=== PATIENT | female | born 1960 | race Two or more races ===

== ENCOUNTER 2020-08-27 13:53 | Inpatient (IN) | payer BC, MEDICAID ==
[~2020-08-27] VITALS: Ht 175.3 cm; Wt 49.9 kg
[2020-08-27 14:00] VITALS: BP 152/84
--- NOTE | 2020-08-27 14:00 | NUR ---
ED Nurse Note: Pt wheeled in to ED from home c/o right humerus pain and fracture. Pt was reffered by Dr. Wood for surgery. Pt had an imaging done last 08/24 and it shows midshaft humerus fracture that will require surgical repair. Pt has hx of multiple myeloma and thrombocytopenia. Pt presents with an immobilizer. AAox4, verbally responsive. No SOB, on room air. ERMD at bedside.
[2020-08-27] MEDS ORDERED: POTASSIUM CHLO20 ME1 ORAL (14:06)
[2020-08-27] MEDS ORDERED: ALLOPURINOL100 M1 ORAL (14:06)
[2020-08-27] MEDS ORDERED: AMLODIPINE BES2.5 MG ORAL (14:06)
[2020-08-27] MEDS ORDERED: DEXAMETHASONE6 MG PO (14:06)
[2020-08-27] MEDS ORDERED: ATIVAN0.5 MG ORAL (14:06)
[2020-08-27] MEDS ORDERED: ACYCLOVIR200 MG ORAL (14:06)
[2020-08-27] MEDS ORDERED: KEPPRA500 M4 ORAL (14:06)
[2020-08-27] MEDS ORDERED: POMALYST1 MG PO (14:06)
[2020-08-27] MEDS ORDERED: OXYCODONE HCL5 M2 ORAL (14:06)
--- NOTE | 2020-08-27 14:12 | Emergency Room Report ---
History of Present Illness General Chief Complaint: Pain Source: Patient, Family Member Present Illness HPI Disclaimer: Please note that this report is being documented using [employer] technology. This can lead to erroneous entry secondary to incorrect interpretation by the dictating instrument. HPI: 60-year-old female with history of seizure disorder multiple myeloma presents for evaluation of humerus fracture. The patient appears to have suffered a pathologic fracture of the right humerus on 08/24. She had imaging done on 08/24 after initial injury as well as today (08/27), showing a midshaft humerus fracture that will require surgical repair. She has a history of thrombocytopenia. Sent in by Dr. Charles Wood who will fix the fracture and to be admitted to Dr. Lagos. Denies other falls or injuries. Denies chest pain, palpitations, shortness of breath, cough, congestion. Only complaint is of arm pain. She was placed in an immobilizer at the orthopedics office prior to arrival. PMH: Multiple myeloma, brain tumor, thrombocytopenia PSH: Brain tumor resection Allergies: Reviewed Social Hx: Reviewed Allergies: Coded Allergies: No Known Allergies (Unverified , 08/27/20) COVID-19 Screening Contact w/high risk pt: No Experienced COVID-19 symptoms?: No COVID-19 Testing performed BLUNGER: Yes COVID-19 Screening: Negative COVID-19 COVID-19 Testing Source: few weeks ago Nursing Documentation-PMH Past Medical History: No History, Except For Hx Hypertension: Yes Hx Cancer: Yes - multiple myeloma Review of Systems All Other Systems: negative except mentioned in HPI Physical Exam Vital Signs Date Time Temp Pulse Resp B/P (MAP) Pulse Ox O2 Delivery O2 Flow Rate FiO2 08/27/20 13:58 98.4 112 20 152/84 (106) 95 Room Air General: Awake and alert, appears uncomfortable HEENT: NC/AT. EOMI. Cardiovascular: Tachycardic Resp: Normal work of breathing. No cough, wheezing or crackles appreciated Abdomen: Abdomen is soft, nondistended. Nontender Skin: Intact. No abrasions, laceration or rash over the exposed skin MSK: Normal tone and bulk. Moving all extremities. Placed in right upper extremity immobilizer with palpable deformity of the right humerus. Tender palpation. Able to flex and extend all digits. Neuro: Awake and alert. Mentating appropriately. Medical Decision Making Diagnostic Impression: Primary Impression: Fracture, humerus closed, shaft Additional Impression: Thrombocytopenia ER Course 60-year-old female with history of multiple myeloma presents for evaluation of apparent pathologic fracture right humerus. Obtain preop labs in preparation for surgical fixation. Discussed with Dr. Wood of orthopedic surgery who does not require any more imaging at this time. Will transfuse platelets as needed. Patient's primary does not have privileges at our center and asked the Dr Lagos admit on his behalf however Dr. Lagos has asked Dr. Garcia to admit and he will stay on his consult. Hemoglobin 9.7, platelets 22. Discussed with Dr. Lagos who did not recommend transfusion at this time as surgery would likely be tomorrow. Laboratory Tests Test 08/27/20 14:30 White Blood Count 5.7 K/UL (4.8-10.8) Red Blood Count 2.86 M/UL (4.20-5.40) L Hemoglobin 9.7 G/DL (12.0-16.0) L Hematocrit 27.8 % (37.0-47.0) L Mean Corpuscular Volume 97 FL (80-99) Mean Corpuscular Hemoglobin 34.1 PG (27.0-31.0) H Mean Corpuscular Hemoglobin Concent 35.0 G/DL (32.0-36.0) Red Cell Distribution Width 25.1 % (11.6-14.8) H Platelet Count 22 K/UL (150-450) L Mean Platelet Volume 12.9 FL (6.5-10.1) H Neutrophils (%) (Auto) 91.1 % (45.0-75.0) H Lymphocytes (%) (Auto) 5.5 % (20.0-45.0) L Monocytes (%) (Auto) 2.1 % (1.0-10.0) Eosinophils (%) (Auto) 1.0 % (0.0-3.0) Basophils (%) (Auto) 0.4 % (0.0-2.0) Prothrombin Time 11.1 SEC (9.30-11.50) Prothrombin Time INR 1.0 (0.9-1.1) Activated Partial Thromboplast Time 34 SEC (23-33) H Sodium Level 140 MMOL/L (136-145) Potassium Level 4.8 MMOL/L (3.5-5.1) Chloride Level 111 MMOL/L (98-107) H Carbon Dioxide Level 20 MMOL/L (21-32) L Anion Gap 9 mmol/L (5-15) Blood Urea Nitrogen 38 mg/dL (7-18) H Creatinine 1.3 MG/DL (0.55-1.30) Estimated Glomerular Filtration Rate 41.5 mL/min (>60) Glucose Level 133 MG/DL (74-106) H Calcium Level 7.8 MG/DL (8.5-10.1) L Total Bilirubin 2.9 MG/DL (0.2-1.0) H Direct Bilirubin 1.1 MG/DL (0.0-0.3) H Aspartate Amino Transferase (AST) 41 U/L (15-37) H Alanine Aminotransferase (ALT) 75 U/L (12-78) Alkaline Phosphatase 252 U/L (46-116) H Total Protein 7.3 G/DL (6.4-8.2) Albumin 2.3 G/DL (3.4-5.0) L Globulin 5.0 g/dL Albumin/Globulin Ratio 0.5 (1.0-2.7) L Microbiology Date/Time Source Procedure Growth Status 08/27/20 14:30 Nasopharynx SARS-CoV-2 RdRp Gene Assay - Final Complete EKG Diagnostic Results Troponin ordered: Yes When was troponin ordered?: Aug 27, 2020 EKG Time: 14:19 Rate: normal Rhythm: NSR ST Segments: no acute changes Other Impression Sinus rhythm, normal axis, normal intervals, no ST segment changes. Rhythm Strip Diag. Results Rhythm Strip Time: 14:19 EP Interpretation: yes Rate: 100 Rhythm: NSR, no PVC's, no ectopy Last Vital Signs Date Time Temp Pulse Resp B/P (MAP) Pulse Ox O2 Delivery O2 Flow Rate FiO2 08/27/20 13:58 98.4 112 20 152/84 (106) 95 Room Air Disposition: ADMITTED INPATIENT Condition: Stable Derrell Urrutia MD Aug 27, 2020 14:12
[2020-08-27] MEDS ORDERED: Morphine Sulfate 4mg/ml Inj (IV USE ONLY) IVP ONE ×2 (14:15→16:00)
--- NOTE | 2020-08-27 14:30 | NUR ---
ED Nurse Note: Pt has a leander-cath on left upper chest patent and intact. Blood and covid swab sent to lab.
--- NOTE | 2020-08-27 15:04 | NUR ---
EMERGENCY CONTACT: Addis (daughter): [phone]
[2020-08-27 15:16] LABS: CALCIUM 7.8 MG/DL (8.5-10.1); CREATININE 1.3 MG/DL (0.55-1.30); POTASSIUM 4.8 MMOL/L (3.5-5.1)
[2020-08-27 15:26] LABS: ALBUMIN 2.3 G/DL (3.4-5.0); ALBUMIN/GLOBULIN RATIO 0.5 (1.0-2.7); BILIRUBIN,TOTAL 2.9 MG/DL (0.2-1.0)
[2020-08-27 15:32] LABS: HEMATOCRIT 27.8 % (37.0-47.0); HEMOGLOBIN 9.7 G/DL (12.0-16.0); MEAN CORPUSCULAR VOLUME 97 FL (80-99); PLATELET COUNT 22 K/UL (150-450); RED BLOOD COUNT 2.86 M/UL (4.20-5.40); RED CELL DISTRIBUTION WIDTH 25.1 % (11.6-14.8); WHITE BLOOD COUNT 5.7 K/UL (4.8-10.8)
[2020-08-27 15:37] LABS: BASOPHILS % (AUTO) 0.4 % (0.0-2.0); BILIRUBIN,DIRECT 1.1 MG/DL (0.0-0.3); LYMPHOCYTES % (AUTO) 5.5 % (20.0-45.0); MONOCYTES % (AUTO) 2.1 % (1.0-10.0); NEUTROPHILS % (AUTO) 91.1 % (45.0-75.0)
[2020-08-27] MEDS ORDERED: Morphine Sulfate 4mg/ml Inj (IV USE ONLY) ONE (15:54)
[2020-08-27 16:32] VITALS: BP 145/78
[2020-08-27] MEDS ORDERED: HYDROmorphone 1mg/ml Carpuject IVP PRN ×2 (17:15→23:30)
[2020-08-27 18:46] VITALS: BP 148/76
--- NOTE | 2020-08-27 19:03 | NUR ---
HAND-OFF: Report given to Sahshi RODRIGUEZ.
--- NOTE | 2020-08-27 19:05 | NUR ---
ED Nurse Note: Recived report from Afia
--- NOTE | 2020-08-27 20:00 | NUR ---
REPORT GIVEN TO ROSALIND RODRIGUEZ PATIENT IS TO BE TRANSFERD TO ROOM 311-[address] [facility]
[2020-08-27 21:00] VITALS: BP 172/100
--- NOTE | 2020-08-27 21:00 | NUR ---
NURSING NOTE: Received pt at apprx 2100 as ER transfer. Pt states she has pain 9/10 in R arm. Will medicate according to eMAR. No outward s/s of distress noted. Breathing pattern is even and unlabored on RA. Head to toe assessment completed. IV COREY in place patent, flushes well. Multiple bruises scattered on upper and lower extremities noted. Outside of scattered bruising skin is intact. New orders processed. Pt oriented to room, provided call light for assistance. All due medications will be administered. Bed at lowest level. Call light within reach. Pt will continue to be monitored.
[2020-08-27] MEDS ORDERED: Zolpidem 5mg tab ORAL PRN (21:45)
[2020-08-27] MEDS ORDERED: Miralax 17gm pkt ORAL PRN (21:45)
[2020-08-27] MEDS ORDERED: D5 1/2NS 1,000 ML IV SCH (22:00)
--- NOTE | 2020-08-27 23:05 | History & Physical ---
History and Physical History & Physicial Donavon Garcia MD Aug 27, 2020 23:05
[2020-08-27] MEDS ORDERED: Hydromorphone 0.5mg/0.5ml inj IVP PRN (23:30)
[2020-08-28] VITALS (25 sets, daily range): BP systolic 106–189; BP diastolic 56–103
--- NOTE | 2020-08-28 01:00 | NUR ---
NURSES NOTE: Vin from lab called and informed me that the platelets were not available at the [facility] for mixing picker tender for [address] Garcia called, Message left. Lab is to call after 0700 to see if the platelets are available at that time. There is still no guarantee for the AM
--- NOTE | 2020-08-28 02:45 | History and Physical Report ---
DATE OF ADMISSION: 08/27/2020 CHIEF COMPLAINT: Right shoulder pain. HISTORY OF PRESENT ILLNESS: This is a 60-year-old [place]ian Nepali female with past medical history significant for brain tumor, prior history of seizure disorder, Hypertension, multiple myeloma, and thrombocytopenia, who presented to the hospital after and was noted to have a pathological fracture of the right humerus. The patient was suffering from the fracture of the right shoulder on August 24, 2020. Imaging confirmed the midshaft humerus fracture, requires surgical intervention. 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 Shortly after initial evaluation in the emergency department, the patient was admitted to the hospital with right shoulder pathological fracture requiring surgical intervention. PAST MEDICAL HISTORY/PAST SURGICAL HISTORY: As above. History of multiple myeloma, brain tumor, thrombocytopenia, history of seizure disorder, Hypertension status post brain tumor resection, status post left shoulder nailing for stabilization of the shoulder due to the impinging fracture, history of left chest wall PASport placement, breast reduction, and appendectomy. MEDICATIONS AT HOME: Please refer to medication reconciliation. ALLERGIES: No known drug allergies. SOCIAL HISTORY: Denies any smoking, alcohol, or drugs. She is disabled. FAMILY HISTORY: Noncontributory. REVIEW OF SYSTEMS: Mostly as above. Denies any dysuria, frequency, hematuria. Denies any hemoptysis or hematochezia. Denies any bright red blood per rectum. Denies any loss of consciousness. Complained about shoulder pain. PHYSICAL EXAMINATION: VITAL SIGNS: On admission, temperature 98.4, pulse of 112, respirations 20, and blood pressure 152/84. GENERAL: The patient is awake, responsive, and in no acute distress. HEAD AND NECK: Pupils are reactive to light. Extraocular movements intact. Neck was supple. No JVD. LUNGS: Good air entry. No wheezing or rales. Decreased air entry in the bases. HEART: S1, S2. Regular rhythm with a systolic ejection murmur in the left sternal border. Tachycardic. No rubs was noted. Chest wall has PAS port on the left side of the chest wall noted without any sign of infection. ABDOMEN: Soft, nondistended, and nontender. Positive bowel sounds. EXTREMITIES: No cyanosis or clubbing. A +2 edema of bilateral lower extremity. Left upper extremity immobilization was noted. Right upper extremity has immobilization noted. SKIN: Left upper extremity ecchymosis was noted throughout the left upper extremity. NEUROLOGIC: Cranial nerves II through XII grossly intact. The patient is moving all her extremities except the right upper extremity due to the immobilization. Tenderness over the right shoulder. LABORATORY DATA: On admission from the emergency department, repeat WBC of 5.6, hemoglobin 9.7, hematocrit of 27, platelets is 22,000. Sodium 140, potassium 4.8, chloride 111, bicarb 20, BUN 38, creatinine 1.3, GFR is of 4.5, glucose is 133. AST of 41, ALT of 75, and alkaline phosphatase of 252. PT of 11, INR 1.0, and PTT of 34. Fibrinogen is 430. Rapid COVID test is negative. ASSESSMENT: 1. Right shoulder pathological humerus fracture. 2. History of multiple myeloma. 3. Brain tumor status post resection. 4. Seizure disorder. 5. Thrombocytopenia. 6. Pedal edema. PLAN: 1. Admit the patient to medical floor. 2. We will follow up with Dr. Israel cornejo from Orthopedics and Dr. Lagos from Hematology/Oncology. 3. We will type and cross. Transfuse 2 units of packed platelets in the morning. 4. Duplex of the lower extremity. 5. Pain control. 6. NPO after midnight. DIET: Diet would be regular diet. ACTIVITY: Bed rest. DVT PROPHYLAXIS: SCD. CODE STATUS: Full Code. Donavon Garcia M.D. DR: LIAT JOB#: [id number] CC: SUSY
--- NOTE | 2020-08-28 04:08 | NUR ---
NURSES NOTE: Do not put on SCD before the venous duplex is completed. STAT order entered for 08/27 however duplex was not completed. F/U phone call made to vascular ext and radiology ext. No answer on either line. Will f/u once again at 0630.
[2020-08-28] MEDS: oxyCODONE 5mg IR tab ORAL PRN ×3 (04:47→13:22)
[2020-08-28] MEDS ORDERED: Hydrocortisone 100mg Inj IV ONE (06:00)
--- NOTE | 2020-08-28 08:31 | NUR ---
NURSES NOTE: Venous duplex and EKG Taken. In chart. Dr aware of results. New orders processed. New BP meds processed. 5mg Norvasc once given 917. Clonidine 0.1 mg Q4H PRN now available for SBP >160.
[2020-08-28] MEDS ORDERED: Heparin 5000 units/ml inj SUBQ SCH (09:00)
[2020-08-28] MEDS ORDERED: Acyclovir 200mg Cap ORAL SCH (09:00)
--- NOTE | 2020-08-28 09:19 | NUR ---
NURSE HAND-OFF: Important Events on Shift:[1 bag or platelets was available from [facility]. ETA 1100 AM. F/u on getting second bag with blood bank. Dr Garcia aware. Gave ok to start with first bag. LABS moved to 1300 until after infusion. New orders processed for high BP. Norvasc 5mg once given at 0918.] Patient Status: [Stable] Diet: [NPO] Pending Orders: [Platelets, Lab work, 2d echocardiogram] Pending Results/Labs:[none] Pending MD notification:[none] Latest Vital Signs: Temperature 98.0 , Pulse 101 , B/P 189 /103 , Respiratory Rate 20 , O2 SAT 92 , Room Air, O2 Flow Rate . Vital Sign Comment: [BP high, Hr elevated] Latest Andrew Fall Score: 45 Fall Risk: High Risk Safety Measures: Call light Within Reach, Bed Alarm , Side Rails Side Rails x2, Bed position Low and Locked. Fall Precautions: Yellow Socks Patient Fall Education Report given to [ALVINO RN/GINNA RN].
[2020-08-28] MEDS: Allopurinol 100mg Tab ORAL SCH (11:10)
[2020-08-28] MEDS ORDERED: HYDROmorphone 1mg/ml Carpuject IVP PRN (11:15)
[2020-08-28] MEDS ORDERED: Hydromorphone 0.5mg/0.5ml inj IVP PRN ×2 (11:15→20:00)
--- NOTE | 2020-08-28 11:23 | Consultation ---
History of Present Illness General Date patient seen: Aug 28, 2020 Chief Complaint: Pain Present Illness HPI 60-year-old female with past medical history significant for brain tumor, seizure disorder, multiple myeloma, and thrombocytopenia, who presented to ER an episode of fall. she was diagnosed to have a pathological fracture of the right humerus. She is admitted for surgical intervention. Allergies: Coded Allergies: No Known Allergies (Unverified , 08/27/20) Medication History Scheduled Acyclovir* (Acyclovir*), Unknown Dose ORAL TWICE A DAY, (Reported) Allopurinol* (Allopurinol*), Unknown Dose ORAL DAILY, (Reported) Amlodipine Besylate* (Amlodipine Besylate*), Unknown Dose ORAL DAILY, (Reported) Dexamethasone (Dexamethasone), 28 MG PO 1xw, (Reported) Levetiracetam (Keppra), Unknown Dose ORAL EVERY 12 HOURS, (Reported) Lorazepam* (Ativan*), 0.5 MG ORAL PRN, (Reported) Pomalidomide (Pomalyst), Unknown Dose PO DAILY, (Reported) Potassium Chloride* (K-Dur*), Unknown Dose ORAL TWICE A DAY, (Reported) Scheduled PRN Oxycodone Hcl* (Oxycodone Hcl*), 5 MG ORAL Q4H PRN for For Pain, (Reported) Patient History Healthcare decision maker Resuscitation status Advanced Directive on File Past Medical/Surgical History Past Medical/Surgical History: (1) Multiple myeloma (2) Brain tumor Review of Systems All Other Systems: negative except mentioned in HPI Physical Exam General Appearance: cachetic, thin Lines, tubes and drains: peripheral HEENT: normocephalic, atraumatic Neck: non-tender, normal alignment Respiratory/Chest: chest wall non-tender, lungs clear Breasts: no masses Cardiovascular/Chest: normal peripheral pulses, normal rate Abdomen: normal bowel sounds, non tender Genitourinary/Rectal: normal genital exam Extremities: normal range of motion Last 24 Hour Vital Signs Date Time Temp Pulse Resp B/P (MAP) Pulse Ox O2 Delivery O2 Flow Rate FiO2 08/28/20 09:16 101 189/103 08/28/20 08:00 98.0 101 20 189/103 (131) 92 101 08/28/20 06:32 110 180/100 08/28/20 04:00 98.1 110 17 180/100 (126) 96 110 08/28/20 00:06 Room Air 08/28/20 00:00 98.7 106 18 156/92 (113) 97 106 08/27/20 21:00 98.6 107 18 172/100 (124) 96 107 08/27/20 19:56 98.2 78 18 140/80 98 Room Air 08/27/20 18:46 98.4 100 15 148/76 98 Room Air 08/27/20 16:32 98.4 105 19 145/78 96 Room Air 08/27/20 16:27 98.4 08/27/20 15:14 98.4 08/27/20 14:00 98.4 112 20 152/84 95 Room Air 08/27/20 13:58 98.4 112 20 152/84 (106) 95 Room Air Intake and Output 08/27/20 08/28/20 19:00 07:00 Intake Total 300 ml Balance 300 ml Intake Oral 300 ml # Voids 2 Laboratory Tests Test 08/27/20 14:30 White Blood Count 5.7 K/UL (4.8-10.8) Red Blood Count 2.86 M/UL (4.20-5.40) L Hemoglobin 9.7 G/DL (12.0-16.0) L Hematocrit 27.8 % (37.0-47.0) L Mean Corpuscular Volume 97 FL (80-99) Mean Corpuscular Hemoglobin 34.1 PG (27.0-31.0) H Mean Corpuscular Hemoglobin Concent 35.0 G/DL (32.0-36.0) Red Cell Distribution Width 25.1 % (11.6-14.8) H Platelet Count 22 K/UL (150-450) L Mean Platelet Volume 12.9 FL (6.5-10.1) H Neutrophils (%) (Auto) 91.1 % (45.0-75.0) H Lymphocytes (%) (Auto) 5.5 % (20.0-45.0) L Monocytes (%) (Auto) 2.1 % (1.0-10.0) Eosinophils (%) (Auto) 1.0 % (0.0-3.0) Basophils (%) (Auto) 0.4 % (0.0-2.0) Prothrombin Time 11.1 SEC (9.30-11.50) Prothromb Time International Ratio 1.0 (0.9-1.1) Activated Partial Thromboplast Time 34 SEC (23-33) H Fibrinogen 430 mg/dL (200-400) H Sodium Level 140 MMOL/L (136-145) Potassium Level 4.8 MMOL/L (3.5-5.1) Chloride Level 111 MMOL/L (98-107) H Carbon Dioxide Level 20 MMOL/L (21-32) L Anion Gap 9 mmol/L (5-15) Blood Urea Nitrogen 38 mg/dL (7-18) H Creatinine 1.3 MG/DL (0.55-1.30) Estimat Glomerular Filtration Rate 41.5 mL/min (>60) Glucose Level 133 MG/DL (74-106) H Calcium Level 7.8 MG/DL (8.5-10.1) L Total Bilirubin 2.9 MG/DL (0.2-1.0) H Direct Bilirubin 1.1 MG/DL (0.0-0.3) H Aspartate Amino Transf (AST/SGOT) 41 U/L (15-37) H Alanine Aminotransferase (ALT/SGPT) 75 U/L (12-78) Alkaline Phosphatase 252 U/L (46-116) H Total Protein 7.3 G/DL (6.4-8.2) Albumin 2.3 G/DL (3.4-5.0) L Globulin 5.0 g/dL Albumin/Globulin Ratio 0.5 (1.0-2.7) L Microbiology Date/Time Source Procedure Growth Status 08/27/20 14:30 Nasopharynx SARS-CoV-2 RdRp Gene Assay - Final Complete Height (Feet): 5 Height (Inches): 9.00 Weight (Pounds): 110 Medications Current Medications Medications (Trade) Dose Ordered Sig/Nasir Route PRN Reason Start Time Stop Time Status Last Admin Dose Admin Acetaminophen (Tylenol) 650 mg Q4H PRN ORAL Temp >100.5 08/27/20 21:45 09/26/20 21:44 Acetaminophen (Tylenol) 650 mg Q6H PRN ORAL Mild Pain (Pain Scale 1-3) 08/27/20 23:30 09/26/20 23:29 Acyclovir (Zovirax) 200 mg Q12HR ORAL 08/28/20 21:00 09/27/20 08:59 Allopurinol (Zyloprim) 100 mg DAILY ORAL 08/28/20 09:00 09/27/20 08:59 08/28/20 11:10 Amlodipine Besylate (Norvasc) 10 mg DAILY ORAL 08/29/20 09:00 09/28/20 08:59 Clonidine HCl (Catapres Tab) 0.1 mg Q4H PRN ORAL For High Blood Pressure 08/28/20 08:45 11/26/20 08:44 Dextrose (Dextrose 50%) 25 ml Q30M PRN IV Hypoglycemia 08/27/20 21:45 11/25/20 21:44 Dextrose (Dextrose 50%) 50 ml Q30M PRN IV Hypoglycemia 08/27/20 21:45 11/25/20 21:44 Dextrose/Sodium Chloride 1,000 ml @ 50 mls/hr Q20H IV 08/27/20 22:00 09/26/20 21:59 08/27/20 22:00 Hydromorphone HCl (Dilaudid) 0.5 mg Q3H PRN IVP Pain Scale (6-10) 08/28/20 11:15 09/04/20 11:14 Hydromorphone HCl (Dilaudid) 1 mg Q3H PRN IVP Severe Pain (Pain Scale 7-10) 08/28/20 11:15 09/04/20 11:14 08/28/20 11:17 Levetiracetam (Keppra) 500 mg Q12HR ORAL 08/28/20 09:00 09/27/20 08:59 08/28/20 11:11 Ondansetron HCl (Zofran) 4 mg Q6H PRN IVP Nausea & Vomiting 08/27/20 21:45 09/26/20 21:44 Oxycodone HCl (Roxicodone) 5 mg Q4H PRN ORAL For Pain 08/27/20 21:45 09/03/20 21:44 08/28/20 09:11 Polyethylene Glycol (Miralax) 17 gm HSPRN PRN ORAL Constipation 08/27/20 21:45 09/26/20 21:44 Potassium Chloride (K-Dur) 20 meq BID ORAL 08/28/20 09:00 3/29/21 08:59 08/28/20 11:11 Zolpidem Tartrate (Ambien) 5 mg HSPRN PRN ORAL Insomnia 08/27/20 21:45 09/03/20 21:44 08/28/20 02:12 Assessment/Plan Problem List: (1) Fracture, humerus closed, shaft ICD Codes: S42.309A - Unspecified fracture of shaft of humerus, unspecified arm, initial encounter for closed fracture SNOMED: 63298703 (2) Multiple myeloma ICD Codes: C90.00 - Multiple myeloma not having achieved remission SNOMED: 336375617 (3) Brain tumor ICD Codes: D49.6 - Neoplasm of unspecified behavior of brain SNOMED: 865957375 (4) Thrombocytopenia ICD Codes: D69.6 - Thrombocytopenia, unspecified SNOMED: 274832160 Assessment/Plan: pain management ortho consult watch PLT might need plt transfusion Dr. Lagos will follow the patient in hospital dvt prophylaxis with SCD symptomatic treatment Bang Rodriguez MD Aug 28, 2020 11:23
--- NOTE | 2020-08-28 11:24 | NUR ---
RD ASSESSMENT & RECOMMENDATIONS SEE CARE ACTIVITY FOR COMPLETE ASSESSMENT DAILY ESTIMATED NEEDS: Needs based on cancer 51.6kg 25-35 kcals/kg 0467-0838 total kcals 1-2 g protein/kg 52-103 g total protein 25-30 mL/kg 9823-7268 total fluid mLs NUTRITION DIAGNOSIS: Altered nutrition related lab values r/t clinical status as evidenced by elev BUN (38), elev BG(133), low Hgb(9.7), high BP(189/103). CURRENT DIET: Now NPO PO DIET RECOMMENDATIONS: LOW NA DIET ADDITIONAL RECOMMENDATIONS: 1) Ensure Enlive qdaily w/ diet Snacks in b/w meals 2) Obtain a standing weight as able 3) monitor BG, need for niss
--- NOTE | 2020-08-28 12:26 | Cardiac Electrophysiology PN ---
Subjective Subjective Patient seen and exmined and DW daughter and RN Add Lopressor for accelerated HTN and tachycardia. ECho Nl EF and ECG no acute changes. No prior [place] or CHF Cleared at moderate risk to proceed with arm surgery Platelet however is only 22 and will be addressed by hematology Dictated [id number] Objective Last 24 Hour Vital Signs Date Time Temp Pulse Resp B/P (MAP) Pulse Ox O2 Delivery O2 Flow Rate FiO2 08/28/20 09:16 101 189/103 08/28/20 08:00 98.0 101 20 189/103 (131) 92 101 08/28/20 06:32 110 180/100 08/28/20 04:00 98.1 110 17 180/100 (126) 96 110 08/28/20 00:06 Room Air 08/28/20 00:00 98.7 106 18 156/92 (113) 97 106 08/27/20 21:00 98.6 107 18 172/100 (124) 96 107 08/27/20 19:56 98.2 78 18 140/80 98 Room Air 08/27/20 18:46 98.4 100 15 148/76 98 Room Air 08/27/20 16:32 98.4 105 19 145/78 96 Room Air 08/27/20 16:27 98.4 08/27/20 15:14 98.4 08/27/20 14:00 98.4 112 20 152/84 95 Room Air 08/27/20 13:58 98.4 112 20 152/84 (106) 95 Room Air Intake and Output 08/27/20 08/28/20 19:00 07:00 Intake Total 300 ml Balance 300 ml Intake Oral 300 ml # Voids 2 Laboratory Tests Test 08/27/20 14:30 White Blood Count 5.7 K/UL (4.8-10.8) Red Blood Count 2.86 M/UL (4.20-5.40) L Hemoglobin 9.7 G/DL (12.0-16.0) L Hematocrit 27.8 % (37.0-47.0) L Mean Corpuscular Volume 97 FL (80-99) Mean Corpuscular Hemoglobin 34.1 PG (27.0-31.0) H Mean Corpuscular Hemoglobin Concent 35.0 G/DL (32.0-36.0) Red Cell Distribution Width 25.1 % (11.6-14.8) H Platelet Count 22 K/UL (150-450) L Mean Platelet Volume 12.9 FL (6.5-10.1) H Neutrophils (%) (Auto) 91.1 % (45.0-75.0) H Lymphocytes (%) (Auto) 5.5 % (20.0-45.0) L Monocytes (%) (Auto) 2.1 % (1.0-10.0) Eosinophils (%) (Auto) 1.0 % (0.0-3.0) Basophils (%) (Auto) 0.4 % (0.0-2.0) Prothrombin Time 11.1 SEC (9.30-11.50) Prothromb Time International Ratio 1.0 (0.9-1.1) Activated Partial Thromboplast Time 34 SEC (23-33) H Fibrinogen 430 mg/dL (200-400) H Sodium Level 140 MMOL/L (136-145) Potassium Level 4.8 MMOL/L (3.5-5.1) Chloride Level 111 MMOL/L (98-107) H Carbon Dioxide Level 20 MMOL/L (21-32) L Anion Gap 9 mmol/L (5-15) Blood Urea Nitrogen 38 mg/dL (7-18) H Creatinine 1.3 MG/DL (0.55-1.30) Estimat Glomerular Filtration Rate 41.5 mL/min (>60) Glucose Level 133 MG/DL (74-106) H Calcium Level 7.8 MG/DL (8.5-10.1) L Total Bilirubin 2.9 MG/DL (0.2-1.0) H Direct Bilirubin 1.1 MG/DL (0.0-0.3) H Aspartate Amino Transf (AST/SGOT) 41 U/L (15-37) H Alanine Aminotransferase (ALT/SGPT) 75 U/L (12-78) Alkaline Phosphatase 252 U/L (46-116) H Total Protein 7.3 G/DL (6.4-8.2) Albumin 2.3 G/DL (3.4-5.0) L Globulin 5.0 g/dL Albumin/Globulin Ratio 0.5 (1.0-2.7) L Microbiology Date/Time Source Procedure Growth Status 08/27/20 14:30 Nasopharynx SARS-CoV-2 RdRp Gene Assay - Final Complete Jerson Hernandes MD Aug 28, 2020 12:26
[2020-08-28 12:35] LABS: HEMATOCRIT 29.3 % (37.0-47.0); HEMOGLOBIN 9.9 G/DL (12.0-16.0); MEAN CORPUSCULAR VOLUME 99 FL (80-99); PLATELET COUNT 24 K/UL (150-450); RED BLOOD COUNT 2.95 M/UL (4.20-5.40); RED CELL DISTRIBUTION WIDTH 22.6 % (11.6-14.8); WHITE BLOOD COUNT 3.9 K/UL (4.8-10.8)
[2020-08-28 13:05] LABS: ALBUMIN 2.1 G/DL (3.4-5.0); ALBUMIN/GLOBULIN RATIO 0.4 (1.0-2.7); BILIRUBIN,TOTAL 2.5 MG/DL (0.2-1.0); CALCIUM 7.8 MG/DL (8.5-10.1); PHOSPHORUS 4.3 MG/DL (2.5-4.9)
[2020-08-28 13:07] LABS: BILIRUBIN,DIRECT 0.9 MG/DL (0.0-0.3)
--- NOTE | 2020-08-28 13:44 | Consultation ---
DATE OF CONSULTATION: 08/28/2020 CARDIOLOGY CONSULTATION CONSULTING PHYSICIAN: Jerson Hernandes MD. REFERRING PHYSICIAN: Donavon Garcia MD. REASON FOR CONSULTATION: Management of hypertension and preoperative clearance prior to right humerus surgery. 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 The patient also has history of seizure disorder, multiple myeloma and thrombocytopenia, and is getting chemotherapy/hydration via left chest port. The patient presented to the emergency room after a fall and was diagnosed with a pathological fracture of right humerus. The patient was admitted and Cardiology clearance was requested for preoperative clearance. In the emergency room, the patient's blood pressure was as high as 189/103. REVIEW OF SYSTEMS: Negative other than what was mentioned in history of present illness. PAST MEDICAL HISTORY: As mentioned above. FAMILY HISTORY: Noncontributory. SOCIAL HISTORY: She lives at home, does not smoke or drink alcohol, and has supportive family. MEDICATIONS: Per reconciliation. PHYSICAL EXAMINATION: VITAL SIGNS: Showed blood pressure 189/103, pulse is 101, respirations 18, and she is afebrile. HEAD AND NECK: Showed no JVD. LUNGS: Clear. CARDIOVASCULAR: Shows regular S1 and S2 with no gallop or murmur. ABDOMEN: Soft. EXTREMITIES: Right arm is in . LABORATORY AND DIAGNOSTIC STUDIES: Labs show white count of 5.7, hemoglobin 9.7, hematocrit 27, platelet count of only 22,000. Sodium 140, potassium 4.8, BUN of 38, creatinine 1.3, and glucose of 133. ASSESSMENT AND PLAN: 1. Accelerated hypertension. The patient is already on Norvasc 10 mg daily. I will add metoprolol 25 mg b.i.d. to her medical regimen, especially in the preop status. In the meantime, continue the patient on p.r.n. clonidine. It is of note that her echocardiogram showed ejection fraction of 60% and EKG showed sinus rhythm with nonspecific ST-T wave abnormalities. 2. Pathologic right arm fracture. The patient is cleared from cardiac perspective in view of nonischemic EKG and normal echocardiogram and no prior myocardial infarction or congestive heart failure. No further cardiac intervention is needed prior to surgery even though the patient has severe thrombocytopenia that needs to be addressed. 3. Multiple myeloma. 4. History of brain tumor, status post surgery. 5. Thrombocytopenia. Platelet count of only 22. Further evaluation by Dr. Lagos. Thank you very much for allowing me to participate in the care of this patient. Please do not hesitate to contact me for any questions regarding my evaluation. Jerson Hernandes M.D. DR: JONATAN JOB#: [id number] CC:
[2020-08-28] MEDS ORDERED: OXYCONTIN20 MG ORAL (13:49)
[2020-08-28] MEDS ORDERED: CLARITHROMYCIN500 MG PO (13:49)
[2020-08-28] MEDS ORDERED: ACYCLOVIR400 MG ORAL (13:49)
[2020-08-28] MEDS ORDERED: ZOLPIDEM TARTRAT5 MG ORAL (13:49)
[2020-08-28] MEDS ORDERED: SODIUM BICARBO650 MG PO (13:49)
[2020-08-28] MEDS ORDERED: ALLOPURINOL300 M1 ORAL (13:49)
[2020-08-28] MEDS ORDERED: AMLODIPINE BESYL5 MG ORAL (13:49)
[2020-08-28] MEDS ORDERED: VITAMIN D250 MCG PO (13:49)
[2020-08-28] MEDS ORDERED: POMALYST3 MG PO (13:49)
[2020-08-28] MEDS ORDERED: Bupivacaine 0.25% Inj 30ml INJ ONE (13:58)
[2020-08-28] MEDS ORDERED: NeoSporin Gu Irrig 1ml Amp IRRIG ONE (13:59)
[2020-08-28] MEDS ORDERED: Bacitracin 50000 Units Vial ONE (13:59)
--- NOTE | 2020-08-28 14:01 | NUR ---
CASE MANAGEMENT:INITIAL REVIEW 60 YR OLD FEMALE PRESENTED TO ED ADVISED BY CC;PAIN SI;RT HUMERUS PATHOLOGICAL FRACTURE. THROMBOCYTOPENIA. 98.4 112 20 152/84 95% ON RA H/H 9.7/27.8 PLT 22 BUN 38 CA 7.8 T-BILI 2.9 D-BILI 1.1 AST 41 ALP 252 ALB 2.3 APTT 34 FIBRINOGEN 430 COVID RAPID ~ NEGATIVE VENOUS DUPLEX ~ No evidence of deep venous thrombosis involving the lower extremities. IS;MORPHINE SULFATE IV X2 ADMITTED TO MED SURG MED SURG STATUS DCP;FROM HOME
[2020-08-28] MEDS ORDERED: Midazolam 2mg/2ml Inj ONE (14:45)
[2020-08-28] MEDS ORDERED: fentaNYL 100 mcg/2 mL IV ONE (14:45)
[2020-08-28] MEDS ORDERED: Lidocaine 1% MPF 10mg/ml 5ml ONE ×2 (14:50→18:11)
[2020-08-28] MEDS ORDERED: Ropivacaine 5mg/ml Vial 30ml INJ ONE (14:59)
[2020-08-28] MEDS ORDERED: Rocuronium Bromide 50mg/5ml Inj IV ONE (15:03)
[2020-08-28] MEDS ORDERED: Phenylephrine 10mg/ml Vial ONE (15:05)
--- NOTE | 2020-08-28 15:44 | Operative Note - PDOC ---
Operative Note Operative Note Pre-op Diagnosis: left patholigic humerus shaft fracture Procedure: see op report Post-op Diagnosis: same as pre-op plus Operative Findings: consistent w/pre-op dx studies Anesthesia: regional Specimen: none Complications: none Condition: stable Estimated Blood Loss: none Implant(s) used?: Yes Luis Wood MD Aug 28, 2020 15:44
--- NOTE | 2020-08-28 15:44 | Pre-Procedure Note/Attestation ---
Pre-Procedure Note/Attestation Complete Prior to Procedure Planned Procedure: right Procedure Narrative: humerus orif Indications for Procedure Pre-Operative Diagnosis: left patholigic humerus shaft fracture Attestation I attest that I discussed the nature of the procedure; its benefits; risks and complications; and alternatives (and the risks and benefits of such alternatives), prior to the procedure, with the patient (or the patient's legal guest services representative). I attest that, if there was a reasonable possibility of needing a blood transfusion, the patient (or the patient's legal guest services representative) was given the [facility] standardized written summary, pursuant to the [place] Blood Safety Act ([place] Health and Safety Code # 1645, as amended). I attest that I re-evaluated the patient just prior to the surgery and that there has been no change in the patient's H&P, except as documented below: Luis Wood MD Aug 28, 2020 15:44
[2020-08-28] MEDS ORDERED: Hydromorphone 0.5mg/0.5ml inj SUBQ PRN (15:45)
[2020-08-28] MEDS: D5 1/2NS 1,000 ML IV SCH (15:51)
[2020-08-28] MEDS ORDERED: Glycopyrrolate 0.2mg/ml 1ml Vial ONE (16:34)
--- NOTE | 2020-08-28 17:11 | Anethesia Preoperative Eval ---
Anesthesia Pre-op PMH/ROS General Date of Evaluation: Aug 28, 2020 Time of Evaluation: 15:20 Anesthesiologist: Lupe ASA Score: ASA 3 Mallampati Score Class I : Soft palate, uvula, fauces, pillars visible Class II: Soft palate, uvula, fauces visible Class III: Soft palate, base of uvula visible Class IV: Only hard plate visible Mallampati Classification: Class II Surgeon: Israel Diagnosis: R humerus Fx Surgical Procedure: ORIF of R humerus Fx Anesthesia History: none Family History: no anesthesia problems Allergies: Coded Allergies: No Known Allergies (Unverified , 08/27/20) Medications: see eMAR Patient NPO?: Yes Past Medical History Cardiovascular: Reports: HTN; Denies: CAD, [place], valve dz, arrhythmia, other Pulmonary: Denies: asthma, COPD, [place], other Gastrointestinal/Genitourinary: Reports: GERD; Denies: CRI, ESRD, other Neurologic/Psychiatric: Reports: depression/anxiety, other - seizures; Denies: dementia, CVA, TIA Endocrine: Denies: DM, hypothyroidism, steroids, other HEENT: Denies: cataract (L), cataract (R), glaucoma, [place] (L), [place] (R), other Hematology/Immune: Reports: anemia, bleeding disorder - thrombocytopenia; Denies: DVT, other Musculoskeletal/Integumentary: Denies: OA, RA, DJD, DDD, edema, other Other: other - malnourished PMH Narrative: as above PSxH Narrative: Abdominoplasty, breast reduction, craniotomy for tumor Anesthesia Pre-op Phys. Exam Physician Exam Last Vital Signs Date Time Temp Pulse Resp B/P (MAP) Pulse Ox O2 Delivery O2 Flow Rate FiO2 08/28/20 17:00 62 18 113/60 100 Simple Mask 6 08/28/20 16:50 97.6 Constitutional: NAD Neurologic: CN 2-12 intact Cardiovascular: RRR, no M/R/G Respiratory: CTA Gastrointestinal: S/NT/ND Airway Exam Mallampati Score: Class II MO: limited Neck: stiff ROM: limited Teeth: intact Dentures: no upper, no lower Anesthesia Pre-op A/P Labs Hematology Test 08/28/20 12:25 White Blood Count 3.9 K/UL (4.8-10.8) L Red Blood Count 2.95 M/UL (4.20-5.40) L Hemoglobin 9.9 G/DL (12.0-16.0) L Hematocrit 29.3 % (37.0-47.0) L Mean Corpuscular Volume 99 FL (80-99) Mean Corpuscular Hemoglobin 33.4 PG (27.0-31.0) H Mean Corpuscular Hemoglobin Concent 33.6 G/DL (32.0-36.0) Red Cell Distribution Width 22.6 % (11.6-14.8) H Platelet Count 24 K/UL (150-450) L Mean Platelet Volume 11.0 FL (6.5-10.1) H Neutrophils (%) (Auto) % (45.0-75.0) Lymphocytes (%) (Auto) % (20.0-45.0) Monocytes (%) (Auto) % (1.0-10.0) Eosinophils (%) (Auto) % (0.0-3.0) Basophils (%) (Auto) % (0.0-2.0) Differential Total Cells Counted 100 Neutrophils % (Manual) 88 % (45-75) H Lymphocytes % (Manual) 9 % (20-45) L Monocytes % (Manual) 3 % (1-10) Eosinophils % (Manual) 0 % (0-3) Basophils % (Manual) 0 % (0-2) Band Neutrophils 0 % (0-8) Platelet Estimate Decreased L Platelet Morphology Normal Hypochromasia 1+ Anisocytosis 3+ Chemistry Test 08/28/20 12:25 Sodium Level 141 MMOL/L (136-145) Potassium Level 4.0 MMOL/L (3.5-5.1) Chloride Level 111 MMOL/L (98-107) H Carbon Dioxide Level 22 MMOL/L (21-32) Anion Gap 8 mmol/L (5-15) Blood Urea Nitrogen 31 mg/dL (7-18) H Creatinine 1.0 MG/DL (0.55-1.30) Estimat Glomerular Filtration Rate 56.2 mL/min (>60) Glucose Level 141 MG/DL (74-106) H Calcium Level 7.8 MG/DL (8.5-10.1) L Phosphorus Level 4.3 MG/DL (2.5-4.9) Magnesium Level 1.7 MG/DL (1.8-2.4) L Total Bilirubin 2.5 MG/DL (0.2-1.0) H Direct Bilirubin 0.9 MG/DL (0.0-0.3) H Aspartate Amino Transf (AST/SGOT) 26 U/L (15-37) Alanine Aminotransferase (ALT/SGPT) 54 U/L (12-78) Alkaline Phosphatase 220 U/L (46-116) H Total Protein 7.1 G/DL (6.4-8.2) Albumin 2.1 G/DL (3.4-5.0) L Globulin 5.0 g/dL Albumin/Globulin Ratio 0.4 (1.0-2.7) L Thyroid Stimulating Hormone (TSH) 1.587 uiU/mL (0.358-3.740) Risk Assessment & Plan Assessment: ASA 3 Plan: ga with Ett R brachial plexus block for post op pain control Status Change Before Surgery: No Pre-Antibiotics Drug: ancef 1gr. Given Within 1 Hr of Incision: Yes Time Given: 16:10 Nitehs Andrade MD Aug 28, 2020 17:11
--- NOTE | 2020-08-28 17:16 | Immediate Post-Op Evaluation ---
Immediate Post-Op Evalulation Immediate Post-Op Evalulation Procedure: Attempted ORIF of R humerus Fx. Date of Evaluation: Aug 28, 2020 Time of Evaluation: 17:11 IV Fluids: 300 Blood Products: 1 unit of platelets Estimated Blood Loss: min Urinary Output: none Blood Pressure Systolic: 115 Blood Pressure Diastolic: 62 Pulse Rate: 64 Respiratory Rate: 18 O2 Sat by Pulse Oximetry: 99 Temperature (Fahrenheit): 97.8 Pain Score (1-10): 1 Nausea: No Vomiting: No Complications Surgery was terminated after induction and initial incision, surgeon realized that necessary instrument to complete intramedullary nailing of humerus are not present. Paralysis reversed spontaneous breathing adequate, extubated and moved to PACU in satisfactory condition. Patient Status: reacts, patent, none Hydration Status: adequate Nitesh Andrade MD Aug 28, 2020 17:16
--- NOTE | 2020-08-28 17:31 | Internal Med Progress Note ---
Subjective Date of Service: Aug 28, 2020 Physician Name VenitaTomy Attending Physician Donavon Garcia MD Current Medications Medications (Trade) Dose Ordered Sig/Nasir Route PRN Reason Start Time Stop Time Status Last Admin Dose Admin Acetaminophen (Tylenol) 650 mg Q4H PRN ORAL Temp >100.5 08/27/20 21:45 09/26/20 21:44 Acetaminophen (Tylenol) 650 mg Q6H PRN ORAL Mild Pain (Pain Scale 1-3) 08/27/20 23:30 09/26/20 23:29 Acyclovir (Zovirax) 200 mg Q12HR ORAL 08/28/20 21:00 09/27/20 08:59 Allopurinol (Zyloprim) 100 mg DAILY ORAL 08/28/20 09:00 09/27/20 08:59 08/28/20 11:10 Amlodipine Besylate (Norvasc) 10 mg DAILY ORAL 08/29/20 09:00 09/28/20 08:59 Cefazolin Sodium 1 gm/Dextrose 55 ml @ 110 mls/hr EVERY 8 HOURS IV 08/28/20 22:00 08/29/20 14:29 UNV Clonidine HCl (Catapres Tab) 0.1 mg Q4H PRN ORAL For High Blood Pressure 08/28/20 08:45 11/26/20 08:44 08/28/20 13:22 Dextrose (Dextrose 50%) 25 ml Q30M PRN IV Hypoglycemia 08/27/20 21:45 11/25/20 21:44 Dextrose (Dextrose 50%) 50 ml Q30M PRN IV Hypoglycemia 08/27/20 21:45 11/25/20 21:44 Dextrose/Sodium Chloride 1,000 ml @ 75 mls/hr Q13H IV 08/28/20 15:51 09/27/20 15:50 Docusate Sodium (Colace) 100 mg THREE TIMES A DAY ORAL 08/28/20 18:00 09/27/20 17:59 Hydromorphone HCl (Dilaudid) 0.5 mg Q4H PRN SUBQ Mild Pain (Pain Scale 1-3) 08/28/20 15:45 09/04/20 15:44 Levetiracetam (Keppra) 500 mg Q12HR ORAL 08/28/20 09:00 09/27/20 08:59 08/28/20 11:11 Metoprolol Tartrate (Lopressor) 25 mg Q12HR ORAL 08/28/20 21:00 11/26/20 20:59 Ondansetron HCl (Zofran) 4 mg Q6H PRN IVP Nausea & Vomiting 08/28/20 15:45 09/27/20 15:44 Oxycodone HCl (OxyCONTIN) 20 mg EVERY 12 HOURS ORAL 08/28/20 21:00 09/04/20 20:59 Oxycodone HCl (Roxicodone) 5 mg Q4H PRN ORAL Breakthrough Pain 08/28/20 15:45 09/04/20 15:44 Polyethylene Glycol (Miralax) 17 gm HSPRN PRN ORAL Constipation 08/27/20 21:45 09/26/20 21:44 Potassium Chloride (K-Dur) 20 meq BID ORAL 08/28/20 09:00 11/26/20 08:59 08/28/20 11:11 Temazepam (RestoriL) 7.5 mg HSPRN PRN ORAL Insomnia 08/28/20 15:45 09/04/20 15:44 Zolpidem Tartrate (Ambien) 5 mg HSPRN PRN ORAL Insomnia 08/27/20 21:45 09/03/20 21:44 08/28/20 02:12 Allergies: Coded Allergies: No Known Allergies (Unverified , 08/27/20) ROS Limited/Unobtainable: No Constitutional: Reports: no symptoms HEENT: Reports: no symptoms Cardiovascular: Reports: no symptoms Respiratory: Reports: no symptoms Gastrointestinal/Abdominal: Reports: no symptoms Genitourinary: Reports: no symptoms Neurologic/Psychiatric: Reports: no symptoms Subjective 60 YO F with history of multiple myeloma admitted with right arm pain. Now pathological fracture right humerus. Cover for Int Darinel-Dr Garcia Objective Last Vital Signs Date Time Temp Pulse Resp B/P (MAP) Pulse Ox O2 Delivery O2 Flow Rate FiO2 08/28/20 17:20 68 15 117/62 100 Simple Mask 6 08/28/20 16:50 97.6 Laboratory Tests Test 08/28/20 12:25 White Blood Count 3.9 K/UL (4.8-10.8) L Red Blood Count 2.95 M/UL (4.20-5.40) L Hemoglobin 9.9 G/DL (12.0-16.0) L Hematocrit 29.3 % (37.0-47.0) L Mean Corpuscular Volume 99 FL (80-99) Mean Corpuscular Hemoglobin 33.4 PG (27.0-31.0) H Mean Corpuscular Hemoglobin Concent 33.6 G/DL (32.0-36.0) Red Cell Distribution Width 22.6 % (11.6-14.8) H Platelet Count 24 K/UL (150-450) L Mean Platelet Volume 11.0 FL (6.5-10.1) H Neutrophils (%) (Auto) % (45.0-75.0) Lymphocytes (%) (Auto) % (20.0-45.0) Monocytes (%) (Auto) % (1.0-10.0) Eosinophils (%) (Auto) % (0.0-3.0) Basophils (%) (Auto) % (0.0-2.0) Differential Total Cells Counted 100 Neutrophils % (Manual) 88 % (45-75) H Lymphocytes % (Manual) 9 % (20-45) L Monocytes % (Manual) 3 % (1-10) Eosinophils % (Manual) 0 % (0-3) Basophils % (Manual) 0 % (0-2) Band Neutrophils 0 % (0-8) Platelet Estimate Decreased L Platelet Morphology Normal Hypochromasia 1+ Anisocytosis 3+ Sodium Level 141 MMOL/L (136-145) Potassium Level 4.0 MMOL/L (3.5-5.1) Chloride Level 111 MMOL/L (98-107) H Carbon Dioxide Level 22 MMOL/L (21-32) Anion Gap 8 mmol/L (5-15) Blood Urea Nitrogen 31 mg/dL (7-18) H Creatinine 1.0 MG/DL (0.55-1.30) Estimat Glomerular Filtration Rate 56.2 mL/min (>60) Glucose Level 141 MG/DL (74-106) H Calcium Level 7.8 MG/DL (8.5-10.1) L Phosphorus Level 4.3 MG/DL (2.5-4.9) Magnesium Level 1.7 MG/DL (1.8-2.4) L Total Bilirubin 2.5 MG/DL (0.2-1.0) H Direct Bilirubin 0.9 MG/DL (0.0-0.3) H Aspartate Amino Transf (AST/SGOT) 26 U/L (15-37) Alanine Aminotransferase (ALT/SGPT) 54 U/L (12-78) Alkaline Phosphatase 220 U/L (46-116) H Total Protein 7.1 G/DL (6.4-8.2) Albumin 2.1 G/DL (3.4-5.0) L Globulin 5.0 g/dL Albumin/Globulin Ratio 0.4 (1.0-2.7) L Thyroid Stimulating Hormone (TSH) 1.587 uiU/mL (0.358-3.740) Microbiology Date/Time Source Procedure Growth Status 08/27/20 14:30 Nasopharynx SARS-CoV-2 RdRp Gene Assay - Final Complete Intake and Output 08/27/20 08/28/20 19:00 07:00 Intake Total 300 ml Balance 300 ml Intake Oral 300 ml # Voids 2 Objective PHYSICAL EXAMINATION: GENERAL: The patient is awake, responsive, and in no acute distress. HEAD AND NECK: Pupils are reactive to light. Extraocular movements intact. Neck was supple. No JVD. LUNGS: Good air entry. No wheezing or rales. Decreased air entry in the bases. HEART: S1, S2. Regular rhythm with a systolic ejection murmur in the left sternal border. Tachycardic. No rubs was noted. Chest wall has a lesion on the left side of the chest wall noted without any sign of infection. ABDOMEN: Soft, nondistended, and nontender. Positive bowel sounds. EXTREMITIES: No cyanosis or clubbing. A +2 edema of bilateral lower extremity. Left upper extremity immobilization was noted. Right upper extremity has immobilization noted. SKIN: Left upper extremity ecchymosis was noted throughout the left upper extremity. NEUROLOGIC: Cranial nerves II through XII grossly intact. The patient is moving all her extremities except the right upper extremity due to the immobilization. Tenderness over the right shoulder. Assessment/Plan Assessment/Plan ASSESSMENT: 1. Right shoulder pathological humerus fracture. 2. History of multiple myeloma. 3. Brain tumor status post resection. 4. Seizure disorder. 5. Thrombocytopenia. 6. Pedal edema. PLAN: 1. Admit the patient to medical floor. 2. Dr. Wood = Orthopedic surgery Dr. Demond = Hematology/Oncology. 3. S/P Transfusion irradiated platelets 08/28/20 4. Duplex of the lower extremity. 5. Pain control. 6. ORIF scheduled for 08/28/20 Tomy Nathan MD Aug 28, 2020 17:31
[2020-08-28] MEDS: Docusate 100mg cap ORAL SCH (18:00)
[2020-08-28 18:25] LABS: CALCIUM 7.5 MG/DL (8.5-10.1); CREATININE 1.1 MG/DL (0.55-1.30); POTASSIUM 4.4 MMOL/L (3.5-5.1)
[2020-08-28] MEDS ORDERED: NS Irrig 1000ml ONE (19:00)
[2020-08-28] MEDS ORDERED: Neostigmine 1mg/ml 10ml Inj ONE (19:00)
[2020-08-28] MEDS ORDERED: LR 1000ml ONE (19:00)
[2020-08-28] MEDS ORDERED: Sterile Water Irrig 1000ml IRRIG ONE (19:00)
--- NOTE | 2020-08-28 19:37 | NUR ---
NURSE HAND-OFF: Important Events on Shift: surgery for right humerus fx. Patient Status: Diet: [] Pending Orders: [] Pending Results/Labs:[] Pending MD notification:[] Latest Vital Signs: Temperature 97.2 , Pulse 75 , B/P 159 /81 , Respiratory Rate 19 , O2 SAT 100 , Simple Mask, O2 Flow Rate 6 . Vital Sign Comment: [] Latest Andrew Fall Score: 45 Fall Risk: High Risk Safety Measures: Call light Within Reach, Bed Alarm Zone 1, Side Rails Side Rails x2, Bed position Low and Locked. Fall Precautions: Patient Fall Education Report given to Corina RODRIGUEZ, patient still in OR for ORIF of the rj humerus.
--- NOTE | 2020-08-28 19:45 | Consultation ---
DATE OF CONSULTATION: 08/28/2020 CONSULTING PHYSICIAN: Luis Wood M.D. CHIEF COMPLAINT: Right pathologic humerus fracture. HISTORY OF PRESENT ILLNESS: The patient is a 60-year-old female with a history of multiple myeloma, who developed a left humerus pathologic fracture, subsequently developed a similar lesion in the right arm, was diagnosed with pathologic fracture as an outpatient, referred to the hospital for fixation, given pain management. PAST MEDICAL HISTORY: Per intake chart. PAST SURGICAL HISTORY: Per intake chart. MEDICATIONS: Per intake chart. PHYSICAL EXAMINATION: The patient is resting comfortably on exam bed. She is in a sling. She has significant pain in the right arm, swelling in the right arm. Neurovascular is normal. DIAGNOSTIC DATA: Imaging studies show pathologic midshaft humerus fracture. ASSESSMENT: 1. Right pathologic humerus fracture. 2. Multiple myeloma. DISCUSSION: At this point, she does have platelets of 23. She has been transfused platelets. We have 2 platelets available including packed RBCs and . At this point, we will proceed with open reduction and internal fixation, intramedullary device. Risks, limitations, expectations, and complications of the procedure were discussed in detail. She has been medically optimized by the consultants including Internal Medicine, Cardiology, as well as Heme-Onc. Risks, limitations, and expectations were all discussed in detail. All questions addressed. Luis Wood M.D. DR: OCTAVIANO JOB#: [id number] CC:
[2020-08-28] MEDS ORDERED: LR 1000ml 1,000 ML IVLG SCH (20:00)
[2020-08-28] MEDS ORDERED: DiphenhydrAMINE 50mg/ml Inj IVP PRN (20:00)
[2020-08-28] MEDS: ceFAZolin sod 1 GM in D5W 55 ML IV SCH (20:30)
--- NOTE | 2020-08-28 20:51 | Immediate Post-Op Evaluation ---
Immediate Post-Op Evalulation Immediate Post-Op Evalulation Procedure: ORIF intramedullary nail of R humerus Fx. Date of Evaluation: Aug 28, 2020 Time of Evaluation: 20:50 IV Fluids: 150 Blood Products: 1 unit of platelets Estimated Blood Loss: 50 Urinary Output: none Blood Pressure Systolic: 148 Blood Pressure Diastolic: 81 Pulse Rate: 86 Respiratory Rate: 22 O2 Sat by Pulse Oximetry: 99 Temperature (Fahrenheit): 97.6 Pain Score (1-10): 1 Nausea: No Vomiting: No Complications none Patient Status: reacts, patent, none Hydration Status: adequate Nitesh Andrade MD Aug 28, 2020 20:51
--- NOTE | 2020-08-28 21:55 | NUR ---
NURSE NOTES: received patient alert and oriented no acute distress noted.
[2020-08-28] MEDS ORDERED: Dyna-Hex 2% Top Sol 2oz TOPIC SCH (22:30)
[2020-08-28] MEDS: oxyCONTIN 20mg tab ORAL SCH (22:34)
[2020-08-28] MEDS: Acyclovir 200mg Cap ORAL SCH (22:34)
--- NOTE | 2020-08-28 23:07 | NUR ---
NURSE NOTES:patient calm and resting encouraged the use of is. offered po intake tolerated well, will advance diet as tolerated. r shoulder with dressing dry and intact arm sling in place, able to wiggle fingers, skin warm and dry touch. will continue to monitor.
[2020-08-29] VITALS: BP 147/83
[2020-08-29] MEDS ORDERED: HYDROmorphone 1mg/ml Carpuject IVP ONE
--- NOTE | 2020-08-29 00:30 | NUR ---
patient using ice pack for the right shoulder and arm,denies any numbness or tingling, noted some swelling on right fingers but skin warm and try touch
--- NOTE | 2020-08-29 00:44 | NUR ---
NURSE NOTES: patient voiding incontinet of large amount of urine, purwick placed.
[2020-08-29] MEDS: oxyCODONE 5mg IR tab ORAL PRN ×4 (02:12→17:19)
--- NOTE | 2020-08-29 02:30 | Operative Note - Dictated ---
DATE OF OPERATION: 08/28/2020 PREOPERATIVE DIAGNOSIS: Right pathologic midshaft humerus fracture. POSTOPERATIVE DIAGNOSIS: Right pathologic midshaft humerus fracture. PROCEDURES: 1. Open reduction and internal fixation, right midshaft humerus fracture with intramedullary nail. 2. Right shoulder open subacromial bursectomy. 3. Open repair of supraspinatus longitudinal split. SURGEON: Luis Wood MD ANESTHESIA: Interscalene with general. INDICATION FOR PROCEDURE: The patient is a pleasant female who has history of multiple myeloma. She has developed pain in the right humerus, which progressed to the point where she became very painful, symptomatic. She subsequently had imaging studies, which showed a pathologic midshaft humerus fracture and displacement. She was in significant pain, had difficulty and wanted to proceed with fixation of the fracture. Risks, limitations, expectations, and complications of procedure were discussed in detail. All questions were addressed including infection, nerve vessel damage, bleeding, particularly given her platelets were 23, transfusion reaction require blood products, nonunion, malunion, need for removal of the hardware, particularly if she develops shoulder pain and additional risks associated with this type of procedure. No questions were addressed. DESCRIPTION OF PROCEDURE: After informed consent was obtained, the patient was brought into the operating room and placed under interscalene general anesthesia. Right shoulder was prepped and draped in a sterile manner. Time-out was performed. A standard anterior lateral incision along the acromion was identified. The skin was incised. Subcutaneous fascia with planes were created to the deltoid. There is a split between the middle anterior deltoid that was extended proximally and distally to visualize the subacromial space. Open bursectomy was performed to visualize the subacromial space. At this point, the bicipital tuberosity was identified. The guidewire was then placed along the lateral cortex. Of note, the patient had a previous metallic anchor used for rotator cuff fixation, which was slightly anterior and medial, it was felt that the nail would be able to pass slightly posterior and lateral to it. The guidewire was then placed. Once the adequate position was confirmed on AP and lateral imaging, opening reamer was placed. The anchor served as a block to anterior and medial advancement of the reamer. Therefore, a slightly lateral starting position was excepted. Once opening reamer was assessed, the entrance hole was evaluated and the metallic anchor was deeply imbedded into the bone initially with the reamer that this would be seated down out of the way of the nail, which was not possible. Additionally, it was imbedded into the bone, and it was concerned that removing it would further create some complications. At this point, slightly lateral and posterior pole was excepted. A guidewire was then placed through the proximal fragment across the fracture site to the distal arch of the humerus and measured 230 mm and 220 mm nail. A 7-hole nail was selected. Sequential reaming up to 9 was performed to help putting in a 9 nail. However, the only reamer that was able to be passed down was a 9.5. Concern was kind of larger nail may cause additional pathogenic fractures, and therefore it was felt that 7 or 8 mm nail was appropriate. Therefore, 8 to 30 to 20 nail was selected and placed. At this point, 2 transverse locking screws proximally were placed. There was significant weakness of the bone proximally. It was not really evident on the x-rays given that the myeloma appeared to be in the midshaft, but probably extended proximally. Once that was done, a perfect tolowa dee-ni' was made for the anterior-posterior screw. The skin was incised. Blunt dissection down to the anterior cortex was performed. A 36 mm screw was selected which was long and therefore replaced with a 34 mm screw. At this point, the humerus moved as a unit. At this point, the wound was copiously irrigated. Shoulder incision was lavaged copiously where the bursectomy was performed in the anterior and posterior edges of the longitudinal tear. A longitudinal split along the supraspinatus tendon was identified. A #2 FiberWire was placed in a longitudinal split to repair the supraspinatus longitudinal tear. Once that was done, the deltoid fracture was approximated with interrupted 1 Vicryl sutures. The subcutaneous tissue was approximated with 2-0 Vicryl suture and Monocryl was used to appose the skin along with Dermabond. Compression dressing was applied. The patient was awoken and taken to recovery room with stable vital signs. ESTIMATED BLOOD LOSS: 50 mL. SPECIMENS: None. IMPLANTS: Include [place] 8 x 220 nail and two 45 mm, 45 mm, and 34 mm locking screws. COMPLICATIONS: Although there were no complications to the procedure, the patient was taken initially to the operating room, placed under anesthesia. The shoulder was prepped and draped. Unfortunately, there was an issue with having the correct implants available at the time of surgery, which required the implants to be brought from another institution and process delaying surgery. Given the patient's comorbidities, it is felt that keeping the patient under anesthesia for the 2 hours was not reasonable, and therefore she was awoken and taken to recovery room. We waited for the instrument to be prepared and fashioned for the surgery, at which point we took the patient back, and she underwent surgery and had no further issues. Luis Wood M.D. DR: Vic JOB#: [id number] CC: SUSY
[2020-08-29] MEDS: D5 1/2NS 1,000 ML IV SCH ×2 (03:32→17:28)
[2020-08-29] MEDS: Hydromorphone 0.5mg/0.5ml inj IVP PRN ×3 (03:39→15:41)
--- NOTE | 2020-08-29 03:50 | NUR ---
patient incontinent of large amount of urine, randa not working properly with patient. still feeling full bladder scan check bhad 544 ml of urine. later had some epsiode of incontinence again and able to pee on a bedpan this time the residual urine was [address] louis left a message. awaiting call back. Addendum: 08/29/20 at 0723 by Corina Escobar RN dr louis called back and got an order for encarnacion insertion order, and will transfuse 1 unit prbc for today. will endorse to the next shift
[2020-08-29 04:00] VITALS: BP 146/90
[2020-08-29] MEDS: ceFAZolin sod 1 GM in D5W 55 ML IV SCH ×2 (06:38→16:25)
[2020-08-29] MEDS ORDERED: HYDROmorphone 1mg/ml Carpuject IVP SCH (07:00)
--- NOTE | 2020-08-29 07:05 | NUR ---
NURSE HAND-OFF: Important Events on Shift:[] patient required multiple pain medications thru the shift. dr montoya made aware and new order noted and carried out. Patient Status: [] stable Diet: [] cardiac diet Pending Orders: [] none Pending Results/Labs:[] cbc Pending MD notification:[] none Latest Vital Signs: Temperature 98.4 , Pulse 87 , B/P 146 /90 , Respiratory Rate 20 , O2 SAT 94 , Nasal Cannula, O2 Flow Rate 2.0 . Vital Sign Comment: [] Latest Andrew Fall Score: 45 Fall Risk: High Risk Safety Measures: Call light Within Reach, Bed Alarm Zone 1, Side Rails Side Rails x2, Bed position Low and Locked. Fall Precautions: Patient Fall Education Report given to []. Addendum: 08/29/20 at 0746 by Corina Escobar RN report given to barbara winslow
[2020-08-29 07:41] LABS: HEMOGLOBIN 8.2 G/DL (12.0-16.0); MEAN CORPUSCULAR VOLUME 101 FL (80-99); PLATELET COUNT 63 K/UL (150-450); RED BLOOD COUNT 2.47 M/UL (4.20-5.40); RED CELL DISTRIBUTION WIDTH 21.9 % (11.6-14.8); WHITE BLOOD COUNT 3.4 K/UL (4.8-10.8)
[2020-08-29 08:00] VITALS: BP 149/86
--- NOTE | 2020-08-29 08:28 | NUR ---
NURSE NOTES: WALKING ROUNDS DONE WITH NIGHT RN. PATIENT AWAKE IN BED. RUE I WITH DRSG AND DAWN WRAP ON WITH SLING IN PLACE WITH PILLOW SUPPORT. CMS WNL. C/O SURGICAL PAIN. PLACED ON BEDPAN; VOIDED X1. WILL PLACE DFOLEY PER MD ORDER. QUESTIONS ANSWERED, NEEDS MET AT THIS TIME. NEEDS REINFORCEMENT; FORGETFUL. DISCUSSED PLAN OF CARE FOR THE DAY. ACKNOWLEDGED UNDERSTANDING. BED IN LOW AND LOCKED POSITION, CALL LIGHT WITHIN REACH.
[2020-08-29] MEDS: oxyCONTIN 20mg tab ORAL SCH (08:42)
[2020-08-29] MEDS: Docusate 100mg cap ORAL SCH ×3 (08:43→17:19)
[2020-08-29] MEDS: Acyclovir 200mg Cap ORAL SCH (08:43)
[2020-08-29] MEDS: Allopurinol 100mg Tab ORAL SCH (08:43)
--- NOTE | 2020-08-29 08:52 | Diagnostic Imaging Report ---
INDICATION: Pain, intraoperative TECHNIQUE: Intraoperative imaging Fluoroscopy time: 113.7 seconds Total dose: 0.90371 mGym2 Total number of images: 6 COMPARISON: None FINDINGS: Intraoperative images document surgical repair with medullary paul of mid shaft humeral fracture. IMPRESSION: Intraoperative imaging, as described
--- NOTE | 2020-08-29 10:11 | Pulmonology Progress Note ---
Subjective ROS Limited/Unobtainable: Yes Allergies: Coded Allergies: No Known Allergies (Unverified , 08/27/20) Objective Last 24 Hour Vital Signs Date Time Temp Pulse Resp B/P (MAP) Pulse Ox O2 Delivery O2 Flow Rate FiO2 08/29/20 09:12 98.1 08/29/20 08:43 81 149/86 08/29/20 08:42 81 149/86 08/29/20 08:00 98.1 81 18 149/86 (107) 95 08/29/20 04:00 98.4 87 20 146/90 (108) 94 08/29/20 00:00 98.7 83 20 147/83 (104) 100 08/28/20 22:59 Nasal Cannula 2.0 Nasal Cannula 2.0 08/28/20 22:35 100 137/86 08/28/20 22:25 98.4 101 20 137/90 (106) 100 08/28/20 22:10 98.0 103 20 141/87 (105) 99 08/28/20 21:55 98.2 100 24 154/65 (94) 100 08/28/20 21:50 98.2 103 20 154/65 100 Nasal Cannula 3 08/28/20 21:40 98.2 08/28/20 21:30 103 20 155/64 98 Nasal Cannula 3 08/28/20 21:15 102 20 150/66 100 Simple Mask 6 08/28/20 21:05 99 22 156/68 100 Simple Mask 6 08/28/20 20:55 94 20 168/80 100 Simple Mask 6 08/28/20 20:51 86 22 99 08/28/20 20:50 92 22 168/81 100 Simple Mask 6 08/28/20 20:43 98.1 90 24 163/79 100 Simple Mask 6 08/28/20 18:50 97.2 75 19 159/81 100 Simple Mask 6 08/28/20 18:35 76 18 158/77 100 Simple Mask 6 08/28/20 18:20 70 16 153/78 100 Simple Mask 6 08/28/20 18:05 70 16 148/75 100 Simple Mask 6 08/28/20 17:50 71 17 145/76 100 Simple Mask 6 08/28/20 17:35 62 16 125/68 100 Simple Mask 6 08/28/20 17:20 68 15 117/62 100 Simple Mask 6 08/28/20 17:16 64 18 99 08/28/20 17:10 63 14 115/62 100 Simple Mask 6 08/28/20 17:00 62 18 113/60 100 Simple Mask 6 08/28/20 16:55 63 19 112/59 100 Simple Mask 6 08/28/20 16:50 97.6 63 18 106/56 100 Simple Mask 6 08/28/20 13:22 167/89 08/28/20 12:00 98.3 92 18 167/89 (115) 95 08/28/20 11:47 98.0 Intake and Output 08/28/20 08/29/20 19:00 07:00 Intake Total 504 ml 969 ml Output Total 50 ml Balance 504 ml 919 ml Intake Oral 240 ml IV Total 300 ml 525 ml Blood Product 204 ml 204 ml Output Estimated Blood Loss 50 ml # Voids 5 # Bowel Movements 1 General Appearance: cachetic HEENT: normocephalic, anicteric Respiratory: chest wall non-tender, normal breath sounds Breasts: no masses Cardiovascular: normal rate Abdomen: normal bowel sounds, soft, non tender, no scars Genitourinary: normal external genitalia Extremities: no clubbing Skin: no rash Neurologic: water server II-XII grossly normal Microbiology Date/Time Source Procedure Growth Status 08/27/20 14:30 Nasopharynx SARS-CoV-2 RdRp Gene Assay - Final Complete Laboratory Tests 08/28/20 12:25: White Blood Count 3.9L, Red Blood Count 2.95L, Hemoglobin 9.9L, Hematocrit 29.3L , Mean Corpuscular Volume 99, Mean Corpuscular Hemoglobin 33.4H, Mean Corpuscular Hemoglobin Concent 33.6, Red Cell Distribution Width 22.6H, Platelet Count 24L, Mean Platelet Volume 11.0H, Neutrophils (%) (Auto) , Lymphocytes (%) (Auto) , Monocytes (%) (Auto) , Eosinophils (%) (Auto) , Basophils (%) (Auto) , Differential Total Cells Counted 100, Neutrophils % (Manual) 88H, Lymphocytes % (Manual) 9L, Monocytes % (Manual) 3, Eosinophils % (Manual) 0, Basophils % (Manual) 0, Band Neutrophils 0, Platelet Estimate DecreasedL, Platelet Morphology Normal, Hypochromasia 1+, Anisocytosis 3+, Sodium Level 141, Potassium Level 4.0, Chloride Level 111H, Carbon Dioxide Level 22, Anion Gap 8, Blood Urea Nitrogen 31H, Creatinine 1.0, Estimat Glomerular Filtration Rate 56.2, Glucose Level 141H, Calcium Level 7.8L, Phosphorus Level 4.3, Magnesium Level 1.7L, Total Bilirubin 2.5H, Direct Bilirubin 0.9H, Aspartate Amino Transf (AST/SGOT) 26, Alanine Aminotransferase (ALT/SGPT) 54, Alkaline Phosphatase 220H , Total Protein 7.1, Albumin 2.1L, Globulin 5.0, Albumin/Globulin Ratio 0.4L, Thyroid Stimulating Hormone (TSH) 1.587 08/28/20 17:55: Sodium Level 143, Potassium Level 4.4, Chloride Level 114H, Carbon Dioxide Level 21, Anion Gap 8, Blood Urea Nitrogen 37H, Creatinine 1.1, Estimat Glomerular Filtration Rate 50.3, Glucose Level 113H, Calcium Level 7.5L 08/29/20 07:20: White Blood Count 3.4L, Red Blood Count 2.47L, Hemoglobin 8.2L, Hematocrit 25.0L , Mean Corpuscular Volume 101H, Mean Corpuscular Hemoglobin 33.3H, Mean Corpuscular Hemoglobin Concent 32.9, Red Cell Distribution Width 21.9H, Platelet Count 63#L, Mean Platelet Volume 6.3L, Neutrophils (%) (Auto) , Lymphocytes (%) (Auto) , Monocytes (%) (Auto) , Eosinophils (%) (Auto) , Basophils (%) (Auto) , Differential Total Cells Counted 100, Neutrophils % (Manual) 85H, Lymphocytes % (Manual) 9L, Monocytes % (Manual) 6, Eosinophils % (Manual) 0, Basophils % (Manual) 0, Band Neutrophils 0, Platelet Estimate DecreasedL, Platelet Morphology Normal, Anisocytosis 3+, Macrocytosis 1+, Tear Drop Cells Occasional Current Medications Medications (Trade) Dose Ordered Sig/Nasir Route PRN Reason Start Time Stop Time Status Last Admin Dose Admin Acetaminophen (Tylenol) 650 mg Q4H PRN ORAL Temp >100.5 08/27/20 21:45 09/26/20 21:44 Acetaminophen (Tylenol) 650 mg Q6H PRN ORAL Mild Pain (Pain Scale 1-3) 08/27/20 23:30 09/26/20 23:29 Acyclovir (Zovirax) 200 mg Q12HR ORAL 08/28/20 21:00 09/27/20 08:59 08/29/20 08:43 Allopurinol (Zyloprim) 100 mg DAILY ORAL 08/28/20 09:00 09/27/20 08:59 08/29/20 08:43 Amlodipine Besylate (Norvasc) 10 mg DAILY ORAL 08/29/20 09:00 09/28/20 08:59 08/29/20 08:42 Cefazolin Sodium 1 gm/Dextrose 55 ml @ 110 mls/hr Q8H IV 08/28/20 23:30 08/29/20 15:59 08/29/20 06:38 Chlorhexidine Gluconate (Maxine-Hex 2%) 1 applic DAILY@2000 TOPIC 08/29/20 20:00 11/27/20 19:59 Clonidine HCl (Catapres Tab) 0.1 mg Q4H PRN ORAL For High Blood Pressure 08/28/20 08:45 11/26/20 08:44 08/28/20 13:22 Dextrose (Dextrose 50%) 25 ml Q30M PRN IV Hypoglycemia 08/27/20 21:45 11/25/20 21:44 Dextrose (Dextrose 50%) 50 ml Q30M PRN IV Hypoglycemia 08/27/20 21:45 11/25/20 21:44 Dextrose/Sodium Chloride 1,000 ml @ 75 mls/hr Q13H IV 08/28/20 15:51 09/27/20 15:50 08/29/20 03:32 Docusate Sodium (Colace) 100 mg THREE TIMES A DAY ORAL 08/28/20 18:00 09/27/20 17:59 08/29/20 08:43 Hydromorphone HCl (Dilaudid) 0.5 mg Q4H PRN IVP Severe Pain (Pain Scale 7-10) 08/29/20 00:00 09/05/20 00:00 08/29/20 03:39 Levetiracetam (Keppra) 500 mg Q12HR ORAL 08/28/20 09:00 09/27/20 08:59 08/29/20 08:43 Metoprolol Tartrate (Lopressor) 25 mg Q12HR ORAL 08/28/20 21:00 11/26/20 20:59 08/29/20 08:43 Ondansetron HCl (Zofran) 4 mg Q6H PRN IVP Nausea & Vomiting 08/28/20 15:45 09/27/20 15:44 Oxycodone HCl (OxyCONTIN) 20 mg EVERY 12 HOURS ORAL 08/28/20 21:00 09/04/20 20:59 08/29/20 08:42 Oxycodone HCl (Roxicodone) 5 mg Q4H PRN ORAL Breakthrough Pain 08/28/20 15:45 09/04/20 15:44 08/29/20 06:16 Polyethylene Glycol (Miralax) 17 gm HSPRN PRN ORAL Constipation 08/27/20 21:45 09/26/20 21:44 Potassium Chloride (K-Dur) 20 meq BID ORAL 08/28/20 09:00 11/26/20 08:59 08/29/20 08:42 Temazepam (RestoriL) 7.5 mg HSPRN PRN ORAL Insomnia 08/28/20 15:45 09/04/20 15:44 Zolpidem Tartrate (Ambien) 5 mg HSPRN PRN ORAL Insomnia 08/27/20 21:45 09/03/20 21:44 08/28/20 02:12 Assessment/Plan Problems: (1) Fracture, humerus closed, shaft (2) Multiple myeloma (3) Brain tumor (4) Thrombocytopenia Assessment/Plan doing better pain management ortho consult watch PLT might need plt transfusion Dr. Lagos will follow the patient in hospital dvt prophylaxis with SCD symptomatic treatment Bang Rodriguez MD Aug 29, 2020 10:11
--- NOTE | 2020-08-29 11:15 | 48 Hour Post Anesthesia Eval ---
Post Anesthesia Evaluation Procedure: ORIF intramedullary nail of R humerus Fx. Date of Evaluation: Aug 29, 2020 Airway: patent Nausea: No Vomiting: No Pain Intensity: 3 Hydration Status: adequate Cardiopulmonary Status: at baseline Mental Status/LOC: patient returned to baseline Post-Anesthesia Complications: 0 Follow-up care needed: N/A - further care as per primary team Tasha Schneider MD Aug 29, 2020 11:15
--- NOTE | 2020-08-29 11:33 | NUR ---
P.T Note: P.T evaluation completed and tx initiated after premedication given by attending RN. Pt is alert, pleasant and cooperative, oriented to self , place and time and current situation but demonstrates episodes of short term memory lapses. Pt reports c/o R shoulder pain aggravated by active movement. Pt wearing R shoulder sling and currently NW on the affected extremity which also limits her mobility. Pt currently requires MIN A x 1 and verbal cues to transition from supine to/from sitting and sitting to/from standing. Pt was able to ambulate 100 ft and required hand in hand/min a x 1 to maintain her ambulatory balance as gait is unsteady. Pt will be seen for skilled P.T service to address strength, balance and general conditioning to increase mobility independence and safety. Recommend home P.T when ready for home DC.
[2020-08-29 12:00] VITALS: BP 134/74
--- NOTE | 2020-08-29 12:30 | NUR ---
NURSE NOTES: BLOOD TRANSFUSION ORDER RECEIVED AND CARRIED OUT. PATIENT IDENTIFIED BY TWO RNS AT BEDSIDE. INFORMATION CORRECT. TRANSFUSION STARTED. VSS AFEBRILE. NO ADVERSE RXN NOTED.
--- NOTE | 2020-08-29 13:02 | NUR ---
CASE MANAGEMENT:REVIEW SI;POD #1 RT HUMERUS ORIF. RT MIDSHAFT HUMERUS FX W/INTRAMEDULLARY NAIL. RT SHOULDER OPEN SUBACROMIAL BURSECTOMY OPEN REPAIR OF SUPRASPINATUS LONGITUDINAL SPLIT 98.7 101 149/86 94% 2L NC WBC 3.4 H/H 8.2/25.0 PLT 63 BUN 37 CA 7.5 IS;KEPPRA PO Q12 K-DUR PO BID OXYCODONE PO Q4 PRN IVF D5NS @ 75 ML/HR ACYCLOVIR PO Q12 LOPRESSOR PO Q12 CEFAZOLIN IV Q8 DILAUDID IV Q4 PRN NORVASC PO QD MED SURG STATUS DCP;FROM HOME
--- NOTE | 2020-08-29 13:12 | CDS Physician Query ---
Clarification is required for compliance, coding accuracy, and to reflect severity of illness for this patient. Dear Dr. Donavon Garcia Date: 08/29/2020 CDS name: Dorothy Sampson Clinical Documentation states: HNP - 60-year-old [place] female with past medical history significant for brain tumor, prior history of seizure disorder, Hypertension, multiple myeloma, and thrombocytopenia, who presented to the hospital after and was noted to have a pathological fracture of the right humerus. Pre-anesthetic evaluation: Other: other - malnourished RD note: Altered nutrition related lab values r/t clinical status as evidenced by elev BUN (38), elev BG(133), low Hgb(9.7), high BP(189/103). BMI 16.2, Albumin 2.1 In order to accurately code this and to reflect the appropriate severity of ilness, please clarify diagnosis. [] Mild Malnutrition [x ] Moderate Malnutrition [] Severe Malnutrition [] Unknown degree [] Other: [] Clinically Undetermined Present on Admission: [x] Yes [] No [] Clinically Undetermined Physician signature Date Please also document in your Progress Notes and/or Discharge Summary and indicate if the condition was present on admission. MTDD
--- NOTE | 2020-08-29 15:35 | Cardiac Electrophysiology PN ---
Assessment/Plan Assessment/Plan 1. Accelerated hypertension. Better on Norvasc 10 mg daily and metoprolol 25 mg b.i.d. and p.r.n. clonidine. It is of note that her echocardiogram showed ejection fraction of 60% and EKG showed sinus rhythm with nonspecific ST-T wave abnormalities. 2. Pathologic right arm fracture. S/P ORIF .The patient was cleared from cardiac perspective in view of nonischemic EKG and normal echocardiogram and no prior myocardial infarction or congestive heart failure. 3. Multiple myeloma. 4. History of brain tumor, status post surgery. 5. Thrombocytopenia. Platelet count of only 22.Improved to 63 Subjective Subjective S/P Right arm ORIF. Asking for pain meds. Getting PRBC Objective Last 24 Hour Vital Signs Date Time Temp Pulse Resp B/P (MAP) Pulse Ox O2 Delivery O2 Flow Rate FiO2 08/29/20 12:00 97.7 70 20 134/74 (94) 95 08/29/20 10:58 98.1 08/29/20 09:12 98.1 08/29/20 09:00 Room Air Room Air 08/29/20 08:43 81 149/86 08/29/20 08:42 81 149/86 08/29/20 08:00 98.1 81 18 149/86 (107) 95 08/29/20 04:00 98.4 87 20 146/90 (108) 94 08/29/20 00:00 98.7 83 20 147/83 (104) 100 08/28/20 22:59 Nasal Cannula 2.0 Nasal Cannula 2.0 08/28/20 22:35 100 137/86 08/28/20 22:25 98.4 101 20 137/90 (106) 100 08/28/20 22:10 98.0 103 20 141/87 (105) 99 08/28/20 21:55 98.2 100 24 154/65 (94) 100 08/28/20 21:50 98.2 103 20 154/65 100 Nasal Cannula 3 08/28/20 21:40 98.2 08/28/20 21:30 103 20 155/64 98 Nasal Cannula 3 08/28/20 21:15 102 20 150/66 100 Simple Mask 6 08/28/20 21:05 99 22 156/68 100 Simple Mask 6 08/28/20 20:55 94 20 168/80 100 Simple Mask 6 08/28/20 20:51 86 22 99 08/28/20 20:50 92 22 168/81 100 Simple Mask 6 08/28/20 20:43 98.1 90 24 163/79 100 Simple Mask 6 08/28/20 18:50 97.2 75 19 159/81 100 Simple Mask 6 08/28/20 18:35 76 18 158/77 100 Simple Mask 6 08/28/20 18:20 70 16 153/78 100 Simple Mask 6 08/28/20 18:05 70 16 148/75 100 Simple Mask 6 08/28/20 17:50 71 17 145/76 100 Simple Mask 6 08/28/20 17:35 62 16 125/68 100 Simple Mask 6 08/28/20 17:20 68 15 117/62 100 Simple Mask 6 08/28/20 17:16 64 18 99 08/28/20 17:10 63 14 115/62 100 Simple Mask 6 08/28/20 17:00 62 18 113/60 100 Simple Mask 6 08/28/20 16:55 63 19 112/59 100 Simple Mask 6 08/28/20 16:50 97.6 63 18 106/56 100 Simple Mask 6 Intake and Output 08/28/20 08/29/20 19:00 07:00 Intake Total 504 ml 969 ml Output Total 50 ml Balance 504 ml 919 ml Intake Oral 240 ml IV Total 300 ml 525 ml Blood Product 204 ml 204 ml Output Estimated Blood Loss 50 ml # Voids 5 # Bowel Movements 1 Laboratory Tests Test 08/28/20 17:55 08/29/20 07:20 Sodium Level 143 MMOL/L (136-145) Potassium Level 4.4 MMOL/L (3.5-5.1) Chloride Level 114 MMOL/L (98-107) H Carbon Dioxide Level 21 MMOL/L (21-32) Anion Gap 8 mmol/L (5-15) Blood Urea Nitrogen 37 mg/dL (7-18) H Creatinine 1.1 MG/DL (0.55-1.30) Estimat Glomerular Filtration Rate 50.3 mL/min (>60) Glucose Level 113 MG/DL (74-106) H Calcium Level 7.5 MG/DL (8.5-10.1) L White Blood Count 3.4 K/UL (4.8-10.8) L Red Blood Count 2.47 M/UL (4.20-5.40) L Hemoglobin 8.2 G/DL (12.0-16.0) L Hematocrit 25.0 % (37.0-47.0) L Mean Corpuscular Volume 101 FL (80-99) H Mean Corpuscular Hemoglobin 33.3 PG (27.0-31.0) H Mean Corpuscular Hemoglobin Concent 32.9 G/DL (32.0-36.0) Red Cell Distribution Width 21.9 % (11.6-14.8) H Platelet Count 63 K/UL (150-450) #L Mean Platelet Volume 6.3 FL (6.5-10.1) L Neutrophils (%) (Auto) % (45.0-75.0) Lymphocytes (%) (Auto) % (20.0-45.0) Monocytes (%) (Auto) % (1.0-10.0) Eosinophils (%) (Auto) % (0.0-3.0) Basophils (%) (Auto) % (0.0-2.0) Differential Total Cells Counted 100 Neutrophils % (Manual) 85 % (45-75) H Lymphocytes % (Manual) 9 % (20-45) L Monocytes % (Manual) 6 % (1-10) Eosinophils % (Manual) 0 % (0-3) Basophils % (Manual) 0 % (0-2) Band Neutrophils 0 % (0-8) Platelet Estimate Decreased L Platelet Morphology Normal Anisocytosis 3+ Macrocytosis 1+ Tear Drop Cells Occasional Microbiology Date/Time Source Procedure Growth Status 08/27/20 14:30 Nasopharynx SARS-CoV-2 RdRp Gene Assay - Final Complete Objective HEAD AND NECK: Showed no JVD. LUNGS: Clear. CARDIOVASCULAR: Shows regular S1 and S2 with no gallop or murmur. ABDOMEN: Soft. EXTREMITIES: Right arm is in immobilizer post ORIF Jerson Hernandes MD Aug 29, 2020 15:35
--- NOTE | 2020-08-29 15:47 | NUR ---
NURSE NOTES: BLOOD TRANSFUSION COMPLETED. NO ADVERSE RXN NOTED. TOLERATED WELL.
[2020-08-29 16:00] VITALS: BP 146/81
--- NOTE | 2020-08-29 16:45 | NUR ---
NURSE NOTES: OFFERED ROXICODONE THAT CAN BE GIVEN AT THIS TIME FOR PAIN. PATIENT STATES THEY WILL WAIT UNTIL DISCHARGE TO TAKE HOME MEDS ONCE AT HOME WITH FAMILY. RECEIVED CALL FROM DAUGHTER THAT PATIENT IS SCHEDULED FOR CHEMO TOMORROW AND IT CAN NOT BE RE-SCHEDULED FOR ANOTHER DAY DUE TO THE HOLIDAY. PLACED CALL TO PCP TO GET DC ORDER. AWAITING RETURN CALL. ASKED DTR TO CALL BACK WITHIN THE HOUR FOR AN UPDATE.
--- NOTE | 2020-08-29 16:50 | Internal Med Progress Note ---
Subjective Date of Service: Aug 29, 2020 Physician Name VenitaTomy Attending Physician Donavon Garcia MD Current Medications Medications (Trade) Dose Ordered Sig/Nasir Route PRN Reason Start Time Stop Time Status Last Admin Dose Admin Acetaminophen (Tylenol) 650 mg Q4H PRN ORAL Temp >100.5 08/27/20 21:45 09/26/20 21:44 Acetaminophen (Tylenol) 650 mg Q6H PRN ORAL Mild Pain (Pain Scale 1-3) 08/27/20 23:30 09/26/20 23:29 Acyclovir (Zovirax) 200 mg Q12HR ORAL 08/28/20 21:00 09/27/20 08:59 08/29/20 08:43 Allopurinol (Zyloprim) 100 mg DAILY ORAL 08/28/20 09:00 09/27/20 08:59 08/29/20 08:43 Amlodipine Besylate (Norvasc) 10 mg DAILY ORAL 08/29/20 09:00 09/28/20 08:59 08/29/20 08:42 Chlorhexidine Gluconate (Maxine-Hex 2%) 1 applic DAILY@2000 TOPIC 08/29/20 20:00 11/27/20 19:59 Clonidine HCl (Catapres Tab) 0.1 mg Q4H PRN ORAL For High Blood Pressure 08/28/20 08:45 11/26/20 08:44 08/28/20 13:22 Dextrose (Dextrose 50%) 25 ml Q30M PRN IV Hypoglycemia 08/27/20 21:45 11/25/20 21:44 Dextrose (Dextrose 50%) 50 ml Q30M PRN IV Hypoglycemia 08/27/20 21:45 11/25/20 21:44 Dextrose/Sodium Chloride 1,000 ml @ 75 mls/hr Q13H IV 08/28/20 15:51 09/27/20 15:50 08/29/20 03:32 Docusate Sodium (Colace) 100 mg THREE TIMES A DAY ORAL 08/28/20 18:00 09/27/20 17:59 08/29/20 13:29 Hydromorphone HCl (Dilaudid) 0.5 mg Q4H PRN IVP Severe Pain (Pain Scale 7-10) 08/29/20 00:00 09/05/20 00:00 08/29/20 15:41 Levetiracetam (Keppra) 500 mg Q12HR ORAL 08/28/20 09:00 09/27/20 08:59 08/29/20 08:43 Metoprolol Tartrate (Lopressor) 25 mg Q12HR ORAL 08/28/20 21:00 11/26/20 20:59 08/29/20 08:43 Ondansetron HCl (Zofran) 4 mg Q6H PRN IVP Nausea & Vomiting 08/28/20 15:45 09/27/20 15:44 08/29/20 16:30 Oxycodone HCl (OxyCONTIN) 20 mg EVERY 12 HOURS ORAL 08/28/20 21:00 09/04/20 20:59 08/29/20 08:42 Oxycodone HCl (Roxicodone) 5 mg Q4H PRN ORAL Breakthrough Pain 08/28/20 15:45 09/04/20 15:44 08/29/20 13:30 Polyethylene Glycol (Miralax) 17 gm HSPRN PRN ORAL Constipation 08/27/20 21:45 09/26/20 21:44 Potassium Chloride (K-Dur) 20 meq BID ORAL 08/28/20 09:00 11/26/20 08:59 08/29/20 08:42 Temazepam (RestoriL) 7.5 mg HSPRN PRN ORAL Insomnia 08/28/20 15:45 09/04/20 15:44 Zolpidem Tartrate (Ambien) 5 mg HSPRN PRN ORAL Insomnia 08/27/20 21:45 09/03/20 21:44 08/28/20 02:12 Allergies: Coded Allergies: No Known Allergies (Unverified , 08/27/20) ROS Limited/Unobtainable: No Constitutional: Reports: no symptoms HEENT: Reports: no symptoms Cardiovascular: Reports: no symptoms Respiratory: Reports: no symptoms Gastrointestinal/Abdominal: Reports: no symptoms Genitourinary: Reports: no symptoms Neurologic/Psychiatric: Reports: no symptoms Subjective 60 YO F with history of multiple myeloma admitted with right arm pain. Now pathological fracture right humerus. Cover for Int Darinel-Dr Garcia Objective Last Vital Signs Date Time Temp Pulse Resp B/P (MAP) Pulse Ox O2 Delivery O2 Flow Rate FiO2 12/30/20 16:11 97.7 08/29/20 16:00 85 18 146/81 (102) 95 08/29/20 09:00 Room Air Room Air 08/28/20 22:59 2.0 2.0 Laboratory Tests Test 08/28/20 17:55 08/29/20 07:20 Sodium Level 143 MMOL/L (136-145) Potassium Level 4.4 MMOL/L (3.5-5.1) Chloride Level 114 MMOL/L (98-107) H Carbon Dioxide Level 21 MMOL/L (21-32) Anion Gap 8 mmol/L (5-15) Blood Urea Nitrogen 37 mg/dL (7-18) H Creatinine 1.1 MG/DL (0.55-1.30) Estimat Glomerular Filtration Rate 50.3 mL/min (>60) Glucose Level 113 MG/DL (74-106) H Calcium Level 7.5 MG/DL (8.5-10.1) L White Blood Count 3.4 K/UL (4.8-10.8) L Red Blood Count 2.47 M/UL (4.20-5.40) L Hemoglobin 8.2 G/DL (12.0-16.0) L Hematocrit 25.0 % (37.0-47.0) L Mean Corpuscular Volume 101 FL (80-99) H Mean Corpuscular Hemoglobin 33.3 PG (27.0-31.0) H Mean Corpuscular Hemoglobin Concent 32.9 G/DL (32.0-36.0) Red Cell Distribution Width 21.9 % (11.6-14.8) H Platelet Count 63 K/UL (150-450) #L Mean Platelet Volume 6.3 FL (6.5-10.1) L Neutrophils (%) (Auto) % (45.0-75.0) Lymphocytes (%) (Auto) % (20.0-45.0) Monocytes (%) (Auto) % (1.0-10.0) Eosinophils (%) (Auto) % (0.0-3.0) Basophils (%) (Auto) % (0.0-2.0) Differential Total Cells Counted 100 Neutrophils % (Manual) 85 % (45-75) H Lymphocytes % (Manual) 9 % (20-45) L Monocytes % (Manual) 6 % (1-10) Eosinophils % (Manual) 0 % (0-3) Basophils % (Manual) 0 % (0-2) Band Neutrophils 0 % (0-8) Platelet Estimate Decreased L Platelet Morphology Normal Anisocytosis 3+ Macrocytosis 1+ Tear Drop Cells Occasional Microbiology Date/Time Source Procedure Growth Status 08/27/20 14:30 Nasopharynx SARS-CoV-2 RdRp Gene Assay - Final Complete Intake and Output 08/28/20 08/29/20 19:00 07:00 Intake Total 504 ml 969 ml Output Total 50 ml Balance 504 ml 919 ml Intake Oral 240 ml IV Total 300 ml 525 ml Blood Product 204 ml 204 ml Output Estimated Blood Loss 50 ml # Voids 5 # Bowel Movements 1 Objective PHYSICAL EXAMINATION: GENERAL: The patient is awake, responsive, and in no acute distress. HEAD AND NECK: Pupils are reactive to light. Extraocular movements intact. Neck was supple. No JVD. LUNGS: Good air entry. No wheezing or rales. Decreased air entry in the bases. HEART: S1, S2. Regular rhythm with a systolic ejection murmur in the left sternal border. Tachycardic. No rubs was noted. Chest wall has a lesion on the left side of the chest wall noted without any sign of infection. ABDOMEN: Soft, nondistended, and nontender. Positive bowel sounds. EXTREMITIES: No cyanosis or clubbing. A +2 edema of bilateral lower extremity. Left upper extremity immobilization was noted. Right upper extremity has immobilization noted. SKIN: Left upper extremity ecchymosis was noted throughout the left upper extremity. NEUROLOGIC: Cranial nerves II through XII grossly intact. The patient is moving all her extremities except the right upper extremity due to the immobilization. Tenderness over the right shoulder. Assessment/Plan Assessment/Plan ASSESSMENT: 1. Right shoulder pathological midshaft humerus fracture. 2. History of multiple myeloma. 3. Brain tumor status post resection. 4. Seizure disorder. 5. Thrombocytopenia. 6. Pedal edema. PLAN: 1. Admit the patient to medical floor. 2. Dr. Wood = Orthopedic surgery Dr. Lagos = Hematology/Oncology. 3. S/P Transfusion irradiated platelets X2 08/28/20 S/P transfusion 1Unit PRBC 08/29/20 4. Duplex of the lower extremity. 5. Pain control. 6. S/P ORIF right midshaft humerus fracture 08/28/20 Tomy Nathan MD Aug 29, 2020 16:50
--- NOTE | 2020-08-29 18:31 | NUR ---
NURSE NOTES: PER PATIENT AND FAMILY REQUEST; DISCHARGE ORDER FOR HOME RECEIVED. DC INSTRUCTIONS EXPLAINED TO PATIENT AND DTR VIA PHONE. REFUSED TO HAVE PORT-A-CATH DE-ACCESSED. STATES SHE WILL HAVE CHEMOTHERAPY TOMORROW. DTR AWARE. AWAITING FAMILY TO MANAGER COMBINATION PATIENT.
--- NOTE | 2020-08-29 19:20 | NUR ---
NURSE NOTES: DAUGHTER HERE TO BROKE MAN PATIENT. DC INSTRUCTIONS REVIEWED AND EXPLAINED TO DTR. VERBALIZED UNDERSTANDING.WILL F/U WITH DR. SHAH IN 2 WEEKS DISCUSSED. ALL BELONGINGS RETURNED TO PATIENT.
[2020-08-29] MEDS ORDERED: Dyna-Hex 2% Top Sol 2oz TOPIC SCH (20:00)
== END 2020-08-29 19:20 | disposition home or self-care (01) | DRG 493 ==
LOC: EMR 14:37 → 3E 15:10 → EDBEDREQ 18:15 → 3E 08-29 09:29
PROC: 0LQ10ZZ Repair Right Shoulder Tendon, Open Approach (ICD-10-PCS; principal; 2020-08-28 15:00)
PROC: 0PSF06Z Reposition Right Humeral Shaft with Intramedullary Internal Fixation Device, Open Approach (ICD-10-PCS; principal; 2020-08-28 15:00)
PROC: 30233R1 Transfusion of Nonautologous Platelets into Peripheral Vein, Percutaneous Approach (ICD-10-PCS; principal; 2020-08-28 15:00)
DX: M84.521A Pathological fracture in neoplastic disease, right humerus, initial encounter for fracture (principal); C90.00 Multiple myeloma not having achieved remission; Z68.1 Body mass index [BMI] 19.9 or less, adult; E44.0 Moderate protein-calorie malnutrition; G40.909 Epilepsy, unspecified, not intractable, without status epilepticus; I10 Essential (primary) hypertension; D69.6 Thrombocytopenia, unspecified; Z91.81 History of falling; Z85.79 Personal history of other malignant neoplasms of lymphoid, hematopoietic and related tissues; Z79.899 Other long term (current) drug therapy; M75.101 Unspecified rotator cuff tear or rupture of right shoulder, not specified as traumatic
CPT/HCPCS: 36415; 76000; 80048; 80053; 82248; 83735; 84100; 84443; 85007; 85025; 85384; 85610; 85730; 86850; 86900; 86901; 86920; 93005; 93306; 93970; 94003; 94150; 96374; 96376; 99285; J2250; J2370; J2405; J2710; J8499; U0002